=== PATIENT | female | born 1955 | race Hispanic/Latino ===

== ENCOUNTER 2018-01-17 12:37 | Emergency (ER) | payer MEDICARE, OTHER ==
[2018-01-17 13:13] LABS: #Eosinphils 0.1 thou/uL (0.0-0.7); #Monocytes 0.1 thou/uL (0.11-0.59); #Neutrophils 1.8 thou/uL (1.40-6.50); %Basophils 1.4 % (0.0-1.0); %Eosinophils 2.3 % (0.0-10.0); %Lymphocytes 33.2 % (21.0-51.0); %Monocytes 4.5 % (0.0-10.0); %Neutrophils 58.7 % (42.0-75.0); Hemoglobin 13.5 g/dL (12.0-16.0); Mean Corpuscular HGB CONC 33.5 g/dL (32.0-36.0); Mean Corpuscular Hemoglobin 28.8 pg (27.0-31.0); Mean Corpuscular Volume 86.1 fL (78.0-98.0); Mean Platelet Volume 10.3 fL (7.4-10.4); Platelet Count 127 thou/uL (130-400); Red Blood Cell (RBC) Count 4.68 mill/uL (4.20-5.40)
[2018-01-17 13:32] LABS: ALT (SGPT) 18 U/L (8-55); AST (SGOT) 19 U/L (5-34); Albumin 4.3 g/dL (3.4-4.8); Alkaline Phosphatase 88 U/L (40-150); Anion Gap 12 mmol/L (10-20); BUN (Urea Nitrogen) 14 mg/dL (9.8-20.1); Bilirubin, Total 0.4 mg/dL (0.2-1.2); Calc. Creatinine Clearance 0 mL/min (70-130); Calcium 9.9 mg/dL (7.8-10.44); Carbon Dioxide 26 mmol/L (23-31); Chloride 103 mmol/L (98-107); Estimated GFR-MDRD 69; Globulin 3.3 g/dL (2.4-3.5); Glucose 188 mg/dL (80-115); Potassium 4.4 mmol/L (3.5-5.1); Protein, Total 7.6 g/dL (6.0-8.3); Sodium 137 mmol/L (136-145)
[2018-01-17 13:37] LABS: CKMB 1.9 ng/mL (0-6.6); Troponin I Less than 0.010 ng/mL (< 0.028)
--- NOTE | 2018-01-17 13:53 | RAD ---
LEFT SHOULDER 3 VIEWS: HISTORY: A 62-year-old female with a history of left arm numbness for 2 days. FINDINGS: Mild degenerative changes left AC joint and glenohumeral joint. No fracture, dislocation, or other s ignificant acute osseous abnormality. IMPRESSION: Degenerative change without fracture or dislocation. POS: IFEOMA
--- NOTE | 2018-01-17 13:54 | RAD ---
CHEST 1 VIEW: HISTORY: Chest pain. COMPARISON: Radiograph 11/28/2015. FINDINGS: The heart size is mildly enlarged. No focal confluent airspace consolidation, pneumothorax, or effus ion. IMPRESSION: No acute intrathoracic abnormality. Mild cardiomegaly. POS: IFEOMA
== END 2018-01-17 14:27 | disposition home or self-care (01) ==
LOC: ERS 12:37
DX: S46.912A Strain of unspecified muscle, fascia and tendon at shoulder and upper arm level, left arm, initial encounter (principal); E78.5 Hyperlipidemia, unspecified; E11.9 Type 2 diabetes mellitus without complications; I10 Essential (primary) hypertension; Z79.899 Other long term (current) drug therapy; X58.XXXA Exposure to other specified factors, initial encounter
CPT/HCPCS: 71045; 80053; 82553; 84484; 85025; 93005

== ENCOUNTER 2018-07-01 10:12 | Emergency (ER) | payer MEDICARE, OTHER ==
[2018-07-01] MEDS ORDERED: Sulfameth/Trimethoprim DS 800-160mg TAB ONE (13:37)
[2018-07-01] MEDS ORDERED: Lidocaine 1% PF 5 ML VIAL ONE (13:38)
[2018-07-01] MEDS ORDERED: cefTRIAXone\\ROCEPHIN 1 GM VIAL ONE (13:38)
== END 2018-07-01 14:29 | disposition home or self-care (01) ==
LOC: ERS 10:12
DX: H05.011 Cellulitis of right orbit (principal); E78.5 Hyperlipidemia, unspecified; E11.9 Type 2 diabetes mellitus without complications; I10 Essential (primary) hypertension; Z79.899 Other long term (current) drug therapy
CPT/HCPCS: 96372; J0696; J2001

== ENCOUNTER 2018-07-02 10:36 | Emergency (ER) | payer MEDICARE, OTHER | END 2018-07-02 12:15 | disposition home or self-care (01) | LOC: ERS 10:36 | DX: L03.213 Periorbital cellulitis (principal); E11.9 Type 2 diabetes mellitus without complications; I10 Essential (primary) hypertension; E78.5 Hyperlipidemia, unspecified | CPT/HCPCS: 99282 ==

== ENCOUNTER 2018-07-28 12:02 | Emergency (ER) | payer MEDICARE, OTHER | END 2018-07-28 12:45 | disposition home or self-care (01) | LOC: ERS 12:02 | DX: S46.911A Strain of unspecified muscle, fascia and tendon at shoulder and upper arm level, right arm, initial encounter (principal); E11.65 Type 2 diabetes mellitus with hyperglycemia; Z79.84 Long term (current) use of oral hypoglycemic drugs; X50.0XXA Overexertion from strenuous movement or load, initial encounter | CPT/HCPCS: 36416; 99283 ==

== ENCOUNTER 2018-10-21 11:08 | Emergency (ER) | payer MEDICARE, MEDICAID ==
[2018-10-21 12:05] LABS: #Lymphocytes 0.9 thou/uL (1.20-3.40); #Monocytes 0.3 thou/uL (0.11-0.59); #Neutrophils 5.6 thou/uL (1.40-6.50); %Basophils 0.3 % (0.0-1.0); %Eosinophils 0.5 % (0.0-10.0); %Lymphocytes 12.7 % (21.0-51.0); %Neutrophils 81.5 % (42.0-75.0); Hemoglobin 11.8 g/dL (12.0-16.0); Mean Corpuscular HGB CONC 33.4 g/dL (32.0-36.0); Mean Corpuscular Hemoglobin 28.5 pg (27.0-31.0); Mean Corpuscular Volume 85.3 fL (78.0-98.0); Mean Platelet Volume 9.8 fL (7.4-10.4); Platelet Count 142 thou/uL (130-400); RBC Distribution Width 12.8 % (11.5-14.5); Red Blood Cell (RBC) Count 4.14 mill/uL (4.20-5.40); White Blood Cell (WBC) Count 6.8 thou/uL (4.8-10.8)
[2018-10-21] MEDS ORDERED: HYDROcodone/Acetaminophen 10/325 mg Tablet ONE (12:06)
[2018-10-21] MEDS ORDERED: Lidocaine 1% (PF) 30 ML VIAL ONE (12:06)
[2018-10-21 12:27] LABS: ALT (SGPT) 11 U/L (8-55); AST (SGOT) 12 U/L (5-34); Albumin 3.9 g/dL (3.4-4.8); Alkaline Phosphatase 87 U/L (40-150); Anion Gap 11 mmol/L (10-20); BUN (Urea Nitrogen) 14 mg/dL (9.8-20.1); Bilirubin, Total 0.8 mg/dL (0.2-1.2); Calc. Creatinine Clearance 0 mL/min (70-130); Calcium 9.5 mg/dL (7.8-10.44); Carbon Dioxide 27 mmol/L (23-31); Chloride 101 mmol/L (98-107); Estimated GFR-MDRD 59; Glucose 240 mg/dL (80-115); Potassium 4.6 mmol/L (3.5-5.1); Protein, Total 6.9 g/dL (6.0-8.3); Sodium 134 mmol/L (136-145)
[2018-10-21] MEDS ORDERED: Ondansetron ODT 4 MG TAB ONE (14:11)
== END 2018-10-21 14:15 | disposition home or self-care (01) ==
LOC: ERS 11:08
DX: L02.212 Cutaneous abscess of back [any part, except buttock and flank] (principal); E11.9 Type 2 diabetes mellitus without complications; I10 Essential (primary) hypertension; E78.5 Hyperlipidemia, unspecified; E78.00 Pure hypercholesterolemia, unspecified
CPT/HCPCS: 10060; 36415; 80053; 83605; 85025; 87040; 96360; J2001; Q0162

== ENCOUNTER 2019-08-08 00:11 | Inpatient (IN) | payer MEDICARE, MEDICAID ==
[2019-08-08 00:57] LABS: #Eosinphils 0.2 thou/uL (0.0-0.7); #Monocytes 0.2 thou/uL (0.11-0.59); #Neutrophils 2.6 thou/uL (1.40-6.50); %Eosinophils 4.5 % (0.0-10.0); %Lymphocytes 25.3 % (21.0-51.0); %Monocytes 4.6 % (0.0-10.0); %Neutrophils 64.6 % (42.0-75.0); Mean Corpuscular HGB CONC 33.4 g/dL (32.0-36.0); Mean Corpuscular Hemoglobin 29.1 pg (27.0-31.0); Mean Corpuscular Volume 87.1 fL (78.0-98.0); Mean Platelet Volume 10.5 fL (7.4-10.4); Platelet Count 132 thou/uL (130-400); RBC Distribution Width 13.3 % (11.5-14.5); Red Blood Cell (RBC) Count 4.48 mill/uL (4.20-5.40); White Blood Cell (WBC) Count 4.1 thou/uL (4.8-10.8)
[2019-08-08 01:11] LABS: ALT (SGPT) 30 U/L (8-55); AST (SGOT) 48 U/L (5-34); Alkaline Phosphatase 81 U/L (40-110); Anion Gap 15 mmol/L (10-20); BUN (Urea Nitrogen) 19 mg/dL (9.8-20.1); Bilirubin, Total 0.3 mg/dL (0.2-1.2); CK (CPK) 116 U/L (29-168); Calc. Creatinine Clearance 0 mL/min (70-130); Calcium 9.1 mg/dL (7.8-10.44); Carbon Dioxide 24 mmol/L (23-31); Chloride 104 mmol/L (98-107); Estimated GFR-MDRD 46; Glucose 261 mg/dL (80-115); Sodium 139 mmol/L (136-145)
[2019-08-08 01:34] LABS: CKMB 3.8 ng/mL (0-6.6)
[2019-08-08] MEDS ORDERED: Aspirin Chewable 81 MG TAB ONE (02:07)
[2019-08-08] MEDS ORDERED: Furosemide 40 MG/4 ML VIAL ONE (02:07)
[2019-08-08] MEDS ORDERED: HYDROcodone/Acetaminophen 5/325 mg Tablet PO PRN ×2 (04:35)
[2019-08-08] MEDS ORDERED: Acetaminophen 325 MG TAB PO PRN (04:35)
[2019-08-08] MEDS ORDERED: Acetaminophen 650 MG Suppository PR PRN (04:35)
[2019-08-08] MEDS ORDERED: Dextrose 50% Abboject 50 ML SYRINGE SLOW IVP PRN (04:47)
[2019-08-08] MEDS ORDERED: Dextrose 5% in Water 1,000 ML IV PRN (04:47)
--- NOTE | 2019-08-08 04:48 | PDOC.HHP ---
Hospitalist HPI - History of Present Illness sob chest pain History of Present Illness: Case of an 64y/o female w pmhx of DM who comes to hospital due to sob. patient refers she was on her usual state of health until today when she was awoken due to dyspnea and chest pain. patient refers she had severe sob with associated chest pain 9/10 non radiating of crushing quaility, associated with diaphoresis and palpitations. patient states sitting up improves her sob, denies any leg swelling or similar events in the past, but does refers that for a couple a months she started to have some chest pain on exertion that improves with rest. at the ED patient was dx with new onset of CHF and hospitalist was consulted for further evaluation and management. Hospitalist ROS - Review of Systems All other systems reviewed; all pertinent +/- noted in HPI/Subj Hospitalist History - Past Medical History Cardiac: reports: HTN, Hyperlipidemia Endocrine: reports: Diabetes - Past Surgical History Past Surgical History: reports: Cholecystectomy - Family History Family History: reports: cancer, cardiac disorder - Social History Smoking Status: Never smoker Alcohol: reports: None Drugs: reports: none - Exam General Appearance: NAD, awake alert Eye: PERRL, anicteric sclera ENT: normocephalic atraumatic, no oropharyngeal lesions Neck: supple, symmetric, no JVD Heart: RRR, no murmur, no gallops Respiratory: rales Gastrointestinal: soft, non-tender, non-distended Extremities: no cyanosis, no clubbing, no edema Skin: normal turgor, no lesions Neurological: cranial nerve grossly intact, normal sensation to touch, no weakness Musculoskeletal: normal tone, normal strength Psychiatric: normal affect, normal behavior, A&O x 3 Hospitalist Results - Labs Result Diagrams: 08/08/19 00:43 08/08/19 00:43 Lab results: WBC 4.1 thou/uL (4.8-10.8) L 08/08/19 00:43 Hgb 13.0 g/dL (12.0-16.0) 08/08/19 00:43 Hct 39.0 % (36.0-47.0) 08/08/19 00:43 MCV 87.1 fL (78.0-98.0) 08/08/19 00:43 Plt Count 132 thou/uL (130-400) 08/08/19 00:43 Neutrophils % 64.6 % (42.0-75.0) 08/08/19 00:43 Sodium 139 mmol/L (136-145) 08/08/19 00:43 Potassium 4.0 mmol/L (3.5-5.1) 08/08/19 00:43 Chloride 104 mmol/L (98-107) 08/08/19 00:43 Carbon Dioxide 24 mmol/L (23-31) 08/08/19 00:43 BUN 19 mg/dL (9.8-20.1) 08/08/19 00:43 Creatinine 1.18 mg/dL (0.6-1.1) H 08/08/19 00:43 Glucose 261 mg/dL (80-115) H 08/08/19 00:43 Calcium 9.1 mg/dL (7.8-10.44) 08/08/19 00:43 Total Bilirubin 0.3 mg/dL (0.2-1.2) 08/08/19 00:43 AST 48 U/L (5-34) H 08/08/19 00:43 ALT 30 U/L (8-55) 08/08/19 00:43 Alkaline Phosphatase 81 U/L (40-110) 08/08/19 00:43 Creatine Kinase 116 U/L (29-168) 08/08/19 00:43 CK-MB (CK-2) 3.8 ng/mL (0-6.6) 08/08/19 00:43 Troponin I 0.046 ng/mL (< 0.028) H 08/08/19 00:43 B-Natriuretic Peptide 718.6 pg/mL (0-100) H 08/08/19 00:43 Serum Total Protein 7.0 g/dL (6.0-8.3) 08/08/19 00:43 Albumin 4.0 g/dL (3.4-4.8) 08/08/19 00:43 - Radiology Interpretation Chest x-ray Additional Comment: cardiomegaly, pulmonary edema Hospitalist H&P A/P - Problem (1) Decompensated heart failure Code(s): I50.9 - HEART FAILURE, UNSPECIFIED Status: Acute (2) HTN (hypertension) Code(s): I10 - ESSENTIAL (PRIMARY) HYPERTENSION Status: Acute (3) DM (diabetes mellitus) Code(s): E11.9 - TYPE 2 DIABETES MELLITUS WITHOUT COMPLICATIONS Status: Acute (4) Hypercholesteremia Code(s): E78.00 - PURE HYPERCHOLESTEROLEMIA, UNSPECIFIED Status: Acute - Plan Plan: - diuresis w lasix 20iv q 12 - lasix naive - starting medical management for chf w bb and acei - 02 supplementation - 2d echo -cardiology consulted - serial troponins -ss and sliding scale
[2019-08-08 06:00] LABS: Troponin I 1.121 ng/mL (< 0.028)
[2019-08-08] MEDS: Furosemide 20 MG/2 ML VIAL SLOW IVP SCH ×2 (06:06→13:04)
--- NOTE | 2019-08-08 07:12 | CT ---
PRELIMINARY REPORT/[facility]/EMERGENCY AFTER HOURS PROCEDURE: EXAM: CTA Chest with Intravenous Contrast CLINICAL HISTORY: ER 3...Patient presents with central chest pain and shortness of breath that awoke her from sleep yon roximately 1 hour ago. She says the pain and shortness of breath are worsened when she lays flat. She denies no previous similar symptoms in the past. She has had a dry cough but no fever. She denies na usea, vomiting, dizziness, and back pain COMPARISON: CT\SR - CTA ANGIO CHEST W WO CON - 11/26/2012 06:22 AM CDT FINDINGS: PULMONARY ARTERIES No filling defects are seen in the pulmonary arteries to suggest acute pulmonary embolus. AORTA No thoracic aortic aneurysm or dissection. Mild atherosclerotic calcifications. LUNGS Extensive perihilar patchy and hazy groundglass opacities bilaterally. Mild passive atelectasis in th e dependent lung parenchyma. Mild peribronchial thickening. Tiny calcified right lower lobe granuloma . PLEURAL SPACES Small to moderate sized pleural effusions. No pneumothorax. HEART AND MEDIASTINUM Cardiomegaly. Moderate sized pericardial effusion. LYMPH NODES Scattered nonspecific top normal size mediastinal and hilar lymph nodes. BONES Thoracic spondylosis. CHEST WALL AND UPPER ABDOMEN Small hiatal hernia. IMPRESSION: 1. No evidence of pulmonary embolus. 2. Moderate cardiogenic edema with pleural and pericardial effusions in the proper clinical setting. ELECTRONICALLY SIGNED BY: Naseem Wilson MD Aug 08, 2019 2:43:09 AM CDT This report is intended for review by the ordering physician only, in accordance of law. If you recei ve this report in error, please call [facility] at [phone]. FINAL REPORT EMERGENCY AFTER HOURS CTA CHEST WITH CONTRAST: TECHNIQUE: Multiple contiguous axial images were obtained in a CTA of the chest per pulmonary embolism protocol. 3D oblique MIP reformats and direct coronal reformats were performed. FINDINGS/IMPRESSION: I agree with the findings and impression given in the preliminary report per [facility] physici an. 1. No evidence of pulmonary thromboembolism. 2. Bilateral pleural effusions with multifocal air space opacities in the lungs. This most likely re presents pulmonary edema. 3. Pericardial effusion. POS: KATHARINEA
--- NOTE | 2019-08-08 07:55 | RAD ---
EXAM: Portable chest PROVIDED CLINICAL HISTORY: Chest pain COMPARISON: 01/17/2018 FINDINGS: Cardiac silhouette appears enlarged. Atherosclerosis involves the aortic arch.Prominence of the pulmo nary vasculature and pulmonary interstitium. Bilateral perihilar airspace disease, left greater than right. Blunting of left costophrenic angle. No evidence for pneumothorax. IMPRESSION: Cardiomegaly and findings suggesting congestive failure. Airspace disease may reflect pulmonary edema and/or pneumonia. Follow-up is recommended.
[2019-08-08 09:00] LABS: Troponin I 2.801 ng/mL (< 0.028)
[2019-08-08] MEDS ORDERED: Carvedilol 3.125 MG TAB PO SCH (09:00)
[2019-08-08] MEDS ORDERED: Amlodipine 5 MG TAB PO SCH (09:00)
[2019-08-08] MEDS: Aspirin 81 mg Enteric Coated Tablet PO SCH (10:05)
[2019-08-08] MEDS: Lisinopril 2.5 MG TAB PO SCH (10:06)
[2019-08-08] MEDS: Enoxaparin Sodium 40 MG/0.4 ML SYRINGE SC SCH ×2 (10:12→11:08)
[2019-08-08] MEDS: HumaLOG 300 UNITS/3 ML VIAL SC PRN (12:06)
--- NOTE | 2019-08-08 12:26 | PDOC.EVN ---
Event Note - Event Note Event Note: Patient seen and examined. Still has chest pain and shortness of breath when gets up to bathroom, but none at rest now. Feeling a bit better. Troponin bumped above 2. Dr. Goodman consulted, may need cath.
[2019-08-08] MEDS ORDERED: Iopamidol-370 76% 500 ML 1 ML ONE (12:42)
[2019-08-08] MEDS ORDERED: Communication Order-Pharmacy FS SCH (14:30)
[2019-08-08] MEDS ORDERED: Furosemide 20 MG/2 ML VIAL SLOW IVP SCH (14:30)
[2019-08-08] MEDS: Glimepiride 4 MG TAB PO SCH (16:18)
[2019-08-08] MEDS: Carvedilol 6.25 MG TAB PO SCH (16:18)
--- NOTE | 2019-08-08 20:45 | CON ---
DATE OF CONSULTATION: HISTORY: Magdalena Moncada is a 64-year-old female, admitted with shortness of breath. After her evaluation, as per Mrs. Moncada' wishes, I called her sister, Evelyn Pal at [phone] to discuss Mrs. Moncada' condition. Over the last two weeks, Ms. Moncada has noted exertional chest pressure that would last approximately 5 minutes. She will be short of breath with this, but denied any diaphoresis, nausea, or vomiting. 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 She also had same central chest pressure. Blood pressure was as high as 189/115. She was given a DuoNeb, transderm nitroglycerin 1 inch was placed, aspirin 325 was given , and then she was given Lasix 40 mg IV. She states that her breathing has improved, but she still has problems lying supine. She does not have any further chest discomfort. PAST MEDICAL HISTORY: Hypertension, diabetes, and hypercholesterolemia. She states she was on cholesterol medicines in the past, but stopped them because she thought it caused diarrhea. CURRENT MEDICATIONS: Amlodipine 5 mg daily, glimepiride 4 mg b.i.d. ALLERGIES: NONE. OPERATIONS: Cholecystectomy. SOCIAL HISTORY: She does not smoke or drink. FAMILY HISTORY: Negative for coronary artery disease. REVIEW OF SYSTEMS: 10-point review of systems is otherwise unremarkable. PHYSICAL EXAMINATION: VITAL SIGNS: 129/70, pulse of 110, sinus rhythm on the monitor. HEENT: PERRL. NECK: Supple. CHEST: Reveals rales one-half way up the posterior lung turner. CARDIOVASCULAR: S1, S2 normal without any S3 or S4. There is a 1/6 holosystolic murmur at the apex. Carotid upstrokes normal without bruits. ABDOMEN: Normal bowel sounds without tenderness or organomegaly. EXTREMITIES: Revealed no clubbing, cyanosis, or edema. NEUROLOGIC: Grossly intact. SKIN: Warm and dry. LABORATORY DATA: EKG revealed sinus tachycardia with nonspecific T-wave changes possible left atrial enlargement. There is only one EKG and another will be requested. Chest x-ray revealed pulmonary edema. She underwent chest CTA which revealed no evidence of pulmonary embolism. There are bilateral pleural effusions and changes consistent with pulmonary edema. There also was a pericardial effusion. Echocardiogram revealed a small pericardial effusion, severe left ventricular dysfunction with ejection fraction of 20% to 25%, left atrial enlargement, mitral regurgitation and mild tricuspid regurgitation. Hemoglobin 13.0, hematocrit 39.0, white count 4100, platelets 132,000. D-dimer 1.62. Sodium 139, potassium 4.0, chloride 104, carbon dioxide 24, BUN 19, creatinine 1.18, glucose up to 304. Troponin I is up to 2.801. BNP 718.6. It is of note that in August 2018, LDL was 144 and has been as high as 171, triglycerides also has been as high as 409. IMPRESSION: 1. Adl-PO-dwquqyyri myocardial infarction, type 1. 2. Fmdil-kw-fzjinhj systolic heart failure. She probably has an ischemic cardiomyopathy. 3. Hypercholesterolemia, untreated. 4. Hypertension. 5. Diabetes. PLAN: The patient's furosemide will be increased to 40 mg b.i.d. with significant rales on examination at the present time. Also, her amlodipine will be discontinued and the carvedilol will be increased with her tachycardia and left ventricular dysfunction. Fasting lipid profile will be obtained. Another EKG will be performed. She is to undergo cardiac catheterization with her severe left ventricular dysfunction and an increase in her troponin. Risks of catheterization were discussed with the patient including , myocardial infarction, stroke, transfusion, limb loss, renal loss, dye reaction, vascular repair, etc. Risks of stent placement were discussed including , myocardial infarction, emergent CABG, restenosis, stent thrombosis, vessel perforation, etc. She will be reassessed in the morning to see if her rales have cleared and possible catheterization on August 08. If she still has significant rales then we will need to wait another day or two. She has never had any gastrointestinal bleeding or stroke and does not have any upcoming surgeries and therefore a drug-eluting stent will be placed if needed. Job ID: [id number] MTDD
[2019-08-09 04:34] LABS: Anion Gap 12 mmol/L (10-20); BUN (Urea Nitrogen) 28 mg/dL (9.8-20.1); Calc. Creatinine Clearance 51 mL/min (70-130); Calcium 8.9 mg/dL (7.8-10.44); Carbon Dioxide 26 mmol/L (23-31); Cardiac Risk 3.9 (Less than 4.5); Chloride 103 mmol/L (98-107); Cholesterol 188 mg/dl (< 200 Desired); Estimated GFR-MDRD 54; Glucose 141 mg/dL (80-115); HDL Cholesterol 48 mg/dL (>60 Neg Risk); LDL Cholesterol, Calculated 114 mg/dL; Magnesium 2.1 mg/dL (1.6-2.6); Potassium 3.9 mmol/L (3.5-5.1); Sodium 137 mmol/L (136-145); Triglycerides 131 mg/dL (Less than 150)
[2019-08-09] MEDS: Furosemide 40 MG/4 ML VIAL SLOW IVP SCH ×2 (05:31→16:13)
[2019-08-09] MEDS: Carvedilol 6.25 MG TAB PO SCH ×2 (05:31→16:12)
[2019-08-09] MEDS: Lisinopril 2.5 MG TAB PO SCH (05:31)
[2019-08-09] MEDS: Aspirin 81 mg Enteric Coated Tablet PO SCH (05:32)
[2019-08-09] MEDS ORDERED: Sodium Chloride 0.9% 1,000 ML IV SCH (06:00)
--- NOTE | 2019-08-09 07:03 | EKG ---
Test Reason : Blood Pressure : / mmHG Vent. Rate : 096 BPM Atrial Rate : 096 BPM P-R Int : 126 ms QRS Dur : 076 ms QT Int : 384 ms P-R-T Axes : 047 006 184 degrees QTc Int : 485 ms Normal sinus rhythm new changes are noted, possible acute OH Prolonged QT Abnormal ECG When compared with ECG of 08-AUG-2019 00:31, (Unconfirmed) T wave inversion now evident in Anterior leads Confirmed by DR. Haris REDDY (3) on 08/09/2019 7:03:19 AM Referred By: EDEL Confirmed By:DR. Haris REDDY
[2019-08-09] MEDS ORDERED: Communication Order-Pharmacy FS SCH (07:15)
[2019-08-09] MEDS: Glimepiride 4 MG TAB PO SCH ×2 (09:49→16:13)
[2019-08-09] MEDS ORDERED: Potassium Chloride 10 MEQ TAB PO SCH (10:45)
[2019-08-09] MEDS: HumaLOG 300 UNITS/3 ML VIAL SC PRN (12:30)
--- NOTE | 2019-08-09 18:46 | PDOC.HOSPP ---
- Subjective Encounter Date: 08/09/19 Encounter Time: 08:20 Subjective: Pt seen for followup re: CHF exacerbation. Feels better, but unable to lie flat. - Objective Vital Signs & Weight: Vital Signs (12 hours) Temp Pulse Resp BP BP Pulse Ox 08/09/19 16:06 99.6 F 84 25 H 128/67 97 08/09/19 15:15 99.1 F 85 16 127/65 93 L 08/09/19 11:16 98.1 F 74 17 119/56 L 98 08/09/19 10:50 98.3 F 77 19 118/58 L 97 08/09/19 08:04 98 F 70 14 110/55 L 95 08/09/19 06:44 95 Weight Weight 132 lb I&O: 08/08/19 08/09/19 08/10/19 06:59 06:59 06:59 Intake Total 1440 480 Output Total 820 Balance 620 480 Result Diagrams: 08/08/19 00:43 08/09/19 03:48 Additional Labs: Accuchecks 08/09/19 08/09/19 08/09/19 17:40 10:51 05:54 POC Glucose 99 320 H 143 H 08/08/19 20:35 POC Glucose 189 H Labs and MARs reviewed by me EKG Reviewed by me: Yes (Tele: NSR) Hospitalist ROS - Review of Systems Respiratory: reports: SOB with excertion. denies: cough, shortness of breath, pleuritic pain, wheezing Cardiovascular: denies: chest pain, palpitations, orthopnea, paroxysmal noc. dyspnea, edema, light headedness - Medication Medications: Active Medications Generic Name Dose Route Start Last Admin Trade Name Freq PRN Reason Stop Dose Admin Aspirin 81 mg 08/08/19 09:00 08/09/19 05:32 Ecotrin PO 81 mg DAILY ADRIANA Administration Carvedilol 6.25 mg 08/08/19 17:00 08/09/19 16:12 Coreg PO 6.25 mg BID-WM ADRIANA Administration Furosemide 40 mg 08/09/19 06:00 08/09/19 16:13 Lasix SLOW IVP 40 mg 0600,1400 ADRIANA Administration Glimepiride 4 mg 08/08/19 16:30 08/09/19 16:13 Amaryl PO 4 mg BID-AC ADRIANA Administration Insulin Human Lispro 0 units 08/08/19 04:47 08/09/19 12:30 Humalog SC 5 unit .MILD SLIDING SCALE PRN Administration Mild Correctional Scale Lisinopril 2.5 mg 08/08/19 09:00 08/09/19 05:31 Zestril PO 2.5 mg DAILY ADRIANA Administration Sodium Chloride 10 ml 08/09/19 09:00 08/09/19 09:49 Flush - Normal Saline IVF 10 ml Q12HR ADRIANA Administration - Exam General - other findings: Obese Eye: anicteric sclera ENT: moist mucosa Neck: supple Heart: RRR Respiratory: no wheezes, normal chest expansion, rales Gastrointestinal: soft, non-tender, normal bowel sounds Psychiatric: normal affect, normal behavior Hosp A/P - Plan - Assessment (1) Acute on chronic systolic heart failure NYHA class 3 Status: Acute (2) HTN (hypertension) Code(s): I10 - ESSENTIAL (PRIMARY) HYPERTENSION Status: Chronic (3) DM (diabetes mellitus) Code(s): E11.9 - TYPE 2 DIABETES MELLITUS WITHOUT COMPLICATIONS Status: Chronic (4) Hypercholesteremia Code(s): E78.00 - PURE HYPERCHOLESTEROLEMIA, UNSPECIFIED Status: Chronic - Plan - diuresis w IV lasix - Pt awaiting cath - 02 supplementation PRN -accuchecks and insulin sliding scale
[2019-08-09] MEDS ORDERED: Atorvastatin Calcium 40 MG TAB PO SCH (21:00)
[2019-08-10 04:49] LABS: Anion Gap 13 mmol/L (10-20); BUN (Urea Nitrogen) 30 mg/dL (9.8-20.1); Calc. Creatinine Clearance 53 mL/min (70-130); Calcium 8.8 mg/dL (7.8-10.44); Carbon Dioxide 26 mmol/L (23-31); Chloride 102 mmol/L (98-107); Estimated GFR-MDRD 57; Glucose 83 mg/dL (80-115); Potassium 3.7 mmol/L (3.5-5.1); Sodium 137 mmol/L (136-145)
[2019-08-10] MEDS: Lisinopril 2.5 MG TAB PO SCH (05:29)
[2019-08-10] MEDS: Carvedilol 6.25 MG TAB PO SCH ×2 (05:30→16:22)
[2019-08-10] MEDS: Furosemide 40 MG/4 ML VIAL SLOW IVP SCH (05:30)
[2019-08-10] MEDS: Aspirin 81 mg Enteric Coated Tablet PO SCH (05:30)
[2019-08-10] MEDS ORDERED: Sodium Chloride 0.9% 1,000 ML IV SCH (06:00)
[2019-08-10] MEDS ORDERED: Furosemide 40 MG TAB PO SCH (07:30)
--- NOTE | 2019-08-10 07:52 | RAD ---
EXAM: Single view of the chest HISTORY: Pulmonary edema COMPARISON: 08/08/2019 FINDINGS: Single view of the chest shows an enlarged but stable cardiomediastinal silhouette. There i s significant improvement in the bilateral perihilar opacities seen on the prior exam. The bones are unremarkable. IMPRESSION: Significant improvement in pulmonary edema.
[2019-08-10] MEDS ORDERED: Potassium Chloride 10 MEQ TAB PO SCH (08:00)
[2019-08-10] MEDS ORDERED: Heparin 10,000 UNITS/1 ML VIAL ONE (08:23)
[2019-08-10] MEDS ORDERED: Midazolam HCl 2 mg/2 ml Vial ONE ×2 (08:48→10:07)
[2019-08-10] MEDS ORDERED: Fentanyl 100 MCG/2 ML VIAL ONE ×2 (08:48→10:07)
[2019-08-10] MEDS ORDERED: Heparin 25,000 units/D5W 500 ML ONE (09:26)
[2019-08-10] MEDS: Glimepiride 4 MG TAB PO SCH ×2 (09:31→16:21)
[2019-08-10] MEDS ORDERED: Communication Order-Pharmacy FS ONE (09:56)
[2019-08-10] MEDS ORDERED: Vecuronium 10 MG VIAL ONE ×2 (10:07→11:41)
[2019-08-10] MEDS ORDERED: Midazolam HCl 5 mg/5 ml Vial ONE (10:07)
[2019-08-10] MEDS ORDERED: Dexmedetomidine 200 MCG/2 ML VIAL ONE (10:07)
[2019-08-10] MEDS ORDERED: Albumin 5% 500 ML ONE (11:37)
[2019-08-10] MEDS ORDERED: Papaverine 60 MG/2 ML VIAL ONE (11:41)
[2019-08-10] MEDS ORDERED: Protamine Sulfate 250 MG/25 ML VIAL ONE (11:41)
[2019-08-10] MEDS ORDERED: PHENYLEPHRINE-NS 100 MCG/ML 10 ML SYRINGE ONE ×2 (11:41→14:38)
[2019-08-10] MEDS ORDERED: Nitroglycerin 50 MG/250 ML BOT ONE (11:41)
[2019-08-10] MEDS ORDERED: Lidocaine 2% PF 5 ML VIAL ONE (11:41)
[2019-08-10] MEDS ORDERED: Cardioplegic Soln 1,000 ML BAG ONE (11:41)
[2019-08-10] MEDS ORDERED: Sodium Bicarb 50 MEQ/50 ML Abboject 8.4% SYRINGE ONE (11:41)
[2019-08-10] MEDS ORDERED: Aminocaproic Acid 5 GM/20 ML VIAL ONE (11:41)
[2019-08-10] MEDS ORDERED: Potassium Chloride 60 MEQ/30 ML VIAL ONE (11:41)
[2019-08-10] MEDS ORDERED: PROPOFOL 200 MG/20 ML VIAL ONE (11:41)
[2019-08-10] MEDS ORDERED: Magnesium Sulfate 1 GM/2 ML VIAL ONE (11:41)
[2019-08-10] MEDS ORDERED: Heparin 30,000 units/30 ml VIAL ONE (11:41)
[2019-08-10] MEDS ORDERED: Norepinephrine 4 MG/4 ML VIAL ONE (11:41)
[2019-08-10] MEDS ORDERED: Calcium Chloride 1 GM/10 ML Abboject SYRINGE ONE (11:41)
[2019-08-10] MEDS ORDERED: Thrombin 5000 UNITS/5 ML VIAL ONE (11:41)
[2019-08-10] MEDS ORDERED: Heparin 5,000 UNITS/ML VIAL ONE (11:41)
[2019-08-10] MEDS ORDERED: Heparin 10,000 UNITS/1 ML VIAL 30,000 UNITS in Sodium Chloride 0.9% 1,000 ML FS SCH (11:45)
[2019-08-10] MEDS ORDERED: Sodium Chloride 0.9% 20 ML ONE (12:53)
[2019-08-10] MEDS ORDERED: Fentanyl 250 MCG/5 ML VIAL ONE (14:08)
[2019-08-10] MEDS ORDERED: EPINEPHrine 1 MG/ML AMP ONE (14:58)
[2019-08-10] MEDS ORDERED: Bupivacaine PF 0.5% 30 ML VIAL ONE (14:58)
[2019-08-10] MEDS ORDERED: Dexamethasone 4 mg/ml Vial ONE (14:58)
[2019-08-10] MEDS ORDERED: Insulin Regular 300 UNITS/3 ML VIAL ONE (15:01)
[2019-08-10] MEDS ORDERED: Milrinone 10 MG/10 ML VIAL ONE (15:09)
[2019-08-10 16:57] LABS: Actual Bicarbonate (HCO3a) 21.5 mEq/L (22-28); CO2 Tension 36.1 mmHg (35.0-45.0); Calcium, Ionized (arterial) 1.09 mmol/L (1.12-1.30); Carboxyhemoglobin (COHb) 0.7 gm% (0.0-3.0); Hemoglobin (Hb) 11.5 g/dL (12.0-16.0); O2 Tension (PaO2), arterial 120.3 mmHg (> 80.0); Potassium - ABG Lab 3.95 mmol/L (3.70-5.30); pH, Arterial 7.39 (7.35-7.45)
[2019-08-10 16:58] LABS: Puncture Site ALINE
[2019-08-10 17:01] LABS: ALV-art Gradient 262.375 (0-20)
[2019-08-10] MEDS ORDERED: Promethazine HCl 25 MG/ML VIAL IM PRN (17:48)
[2019-08-10] MEDS ORDERED: Bisacodyl 5 MG TAB PO PRN (17:48)
[2019-08-10] MEDS ORDERED: Mag-Al 1200 mg/1200 mg/30 ML UDCUP PO PRN (17:48)
[2019-08-10] MEDS ORDERED: Post-Op Insulin Drip Protocol IVPB ONE (17:48)
[2019-08-10] MEDS ORDERED: Fentanyl 100 MCG/2 ML VIAL SLOW IVP PRN ×2 (17:48)
[2019-08-10] MEDS ORDERED: traMADol HCl 50 MG TAB PO PRN (17:48)
[2019-08-10] MEDS ORDERED: Ondansetron PF 4 MG/2 ML Vial IVP PRN (17:48)
[2019-08-10] MEDS ORDERED: Guaifenesin DM 100-10/5 ML UDCUP PO PRN (17:48)
[2019-08-10] MEDS ORDERED: Acetaminophen 325 MG TAB PO PRN (17:48)
[2019-08-10] MEDS ORDERED: Hetastarch 6% 500 ML 500 ML IVPB PRN (17:48)
[2019-08-10] MEDS ORDERED: hydrALAZINE 20 MG/ML VIAL SLOW IVP PRN (17:48)
[2019-08-10] MEDS ORDERED: Norepinephrine 8 MG/0.9% NS 250 ML IVPB PRN (17:48)
[2019-08-10] MEDS ORDERED: Nitroglycerin 50 MG/250 ML BOT 250 ML IVPB PRN (17:48)
[2019-08-10] MEDS ORDERED: Bisacodyl 10 MG SUPP PR PRN (17:48)
[2019-08-10] MEDS ORDERED: Potassium Chloride 20 MEQ/100 ML PREMIX BAG IVPB PRN (17:48)
[2019-08-10] MEDS ORDERED: Morphine 2 MG/ML SYRINGE SLOW IVP PRN (17:48)
[2019-08-10 18:02] LABS: #Eosinphils 0.2 thou/uL (0.0-0.7); #Lymphocytes 1.3 thou/uL (1.20-3.40); #Monocytes 0.3 thou/uL (0.11-0.59); #Neutrophils 5.5 thou/uL (1.40-6.50); %Basophils 0.2 % (0.0-1.0); %Eosinophils 2.3 % (0.0-10.0); %Lymphocytes 18.2 % (21.0-51.0); %Monocytes 3.8 % (0.0-10.0); %Neutrophils 75.5 % (42.0-75.0); Hemoglobin 11.3 g/dL (12.0-16.0); Mean Corpuscular HGB CONC 33.5 g/dL (32.0-36.0); Mean Corpuscular Volume 86.5 fL (78.0-98.0); Mean Platelet Volume 11.4 fL (7.4-10.4); Platelet Count 125 thou/uL (130-400); RBC Distribution Width 13.1 % (11.5-14.5); White Blood Cell (WBC) Count 7.3 thou/uL (4.8-10.8)
[2019-08-10 18:07] LABS: INR-International Normal Ratio 1.4; PTT 30.2 sec (22.9-36.1); Prothrombin Time 16.8 sec (12.0-14.7)
--- NOTE | 2019-08-10 18:08 | RAD ---
CHEST ONE VIEW: 08/10/19 INDICATION: History of open heart surgery. COMPARISON: Prior exam dated 08/10/19. FINDINGS: The patient has undergone interval sternotomy. The patient is intubated. There is a gastric catheter in place. There is a midline mediastinal drain. There is a right IJ central venous catheter. There is pulmonary vascular congestion and perihilar edema. There is a small left pleural effusion. No pneumo thorax is evident. Cholecystectomy clips are seen within the right upper quadrant. IMPRESSION: 1. Postoperative chest as above. 2. Cardiomegaly with pulmonary vascular congestion, and perihilar edema consistent with volume o verload or CHF. There is a small left pleural effusion. 3. Continued follow-up is recommended. POS: SAGAR
[2019-08-10] MEDS: Ketorolac Tromethamine 30 MG/ML VIAL IVP SCH (18:18)
[2019-08-10] MEDS: Sodium Chloride 0.9% 1,000 ML IV SCH (18:20)
[2019-08-10 18:21] LABS: Anion Gap 13 mmol/L (10-20); BUN (Urea Nitrogen) 26 mg/dL (9.8-20.1); Calc. Creatinine Clearance 60 mL/min (70-130); Calcium 7.7 mg/dL (7.8-10.44); Carbon Dioxide 21 mmol/L (23-31); Chloride 109 mmol/L (98-107); Estimated GFR-MDRD 65; Glucose 116 mg/dL (80-115); Sodium 139 mmol/L (136-145)
[2019-08-10] MEDS ORDERED: Dextrose 5% in Water 1,000 ML IV PRN (18:21)
[2019-08-10] MEDS ORDERED: Dextrose 50% Abboject 50 ML SYRINGE SLOW IVP PRN (18:21)
[2019-08-10] MEDS ORDERED: HUMULIN R 100 UNITS in Sodium Chloride 0.9% 100 ML IVPB SCH (18:45)
--- NOTE | 2019-08-10 19:49 | PDOC.EVN ---
Event Note - Event Note Event Note: Pt went for cath, followed by CABG. Could not see patient because she was out of the room most of the day for the above reasons.
[2019-08-10] MEDS ORDERED: Famotidine/PF 20 mg/2ml Vial SLOW IVP SCH (21:00)
[2019-08-10] MEDS: CEFAZOLIN 2 GM in Premix Bag 1 BAG IVPB SCH (21:29)
--- NOTE | 2019-08-10 22:40 | PQF ---
DATE: 08-10-19 ATTN: DR. HOLLY COUGHLIN Please exercise your independent, professional judgment in responding to the clarification form. Clinical indicators are provided on the bottom of this form for your review Please check appropriate box(s): [ ] ACUTE RENAL FAILURE/ MINERVA [ x ] Insignificant Lab Values [ ] Other diagnosis [ ] Unable to determine In addition, please specify: Present on Admission (POA): [ ] Yes [ ] No [ ] Unable to determine For continuity of documentation, please document condition throughout progress notes and discharge summary. Thank You. CLINICAL INDICATORS - SIGNS / SYMPTOMS/ LABS are present in the medical record: GFR: 08-08-19: 46 08-09-19: 54 08-10-19: 57 08-10-19: 65 CREATININE: 08-08-19: 1.18 08-09-19: 1.02 08-10-19: 0.98 08-10-19: 0.87 BUN: 08-08-19: 19 08-09-19: 28 08-10-19: 30 08-10-19: 26 RISK FACTORS: H&P 08-08-19: IV LASIX , DECOMPENSATED HEART FAILURE, HTN, DM 2 PROCEDURE: 08-08-19: LHC TREATMENT: MAR: 08-10-19: NS IVF SERIES OF LABS 08-08-19 TO 08-10-19 (This form is maintained as a part of the permanent medical record) 2014 [employer]. All Rights Reserved [email or web address]
--- NOTE | 2019-08-10 23:09 | OP ---
DATE OF PROCEDURE: 08/10/2019 PREOPERATIVE DIAGNOSES: Coronary artery disease/acute onset pulmonary edema/congestive heart failure/diabetes mellitus/hypertension/hypercholesterolemia. POSTOPERATIVE DIAGNOSES: Coronary artery disease/acute onset pulmonary edema/congestive heart failure/diabetes mellitus/hypertension/hypercholesterolemia. PROCEDURES PERFORMED: Urgent coronary artery bypass grafting x3 - 1. Left internal mammary artery to 1.0 mm mid left anterior descending - good conduit and small diffusely diseased target. 2. Reverse saphenous vein to 1.25 mm diagonal - good conduit and diffusely diseased small target. 3. Reverse saphenous vein to 1.0 mm obtuse marginal - good conduit with diffusely diseased small target. These were not redo targets. CIGARETTE INSPECTOR SURGEON: Nii Ellis MD ANESTHESIA: General endotracheal. ANESTHESIOLOGISTS: 1. Nadine Garcia MD. 2. Franklin Giron MD. 3. Benjamin Powell MD. PUMP TIME: 50 minutes. CROSSCLAMP TIME: 29 minutes. LOW-CORE TEMPERATURE: 34 degrees Celsius. METAL FURNITURE GLAZIER: Delia Meredith. DRAINS: 24-[place] chest tubes x2. DRIPS: Levophed at 5 mcg and insulin. The patient was loaded with Primacor on pump. TRANSFUSIONS: None. DESCRIPTION OF PROCEDURE: After consent was obtained, the patient was brought to the operating room and placed in supine position on the operating table. Appropriate central line was placed and general endotracheal anesthesia was induced. Chest, abdomen, and legs were prepped and draped in usual sterile fashion. Greater saphenous vein was harvested from the left lower extremity utilizing an endoscopic technique. Wounds were irrigated and closed in layers. Median sternotomy was performed. Left internal mammary artery was harvested as a pedicle graft. The patient was systemically heparinized. Distal pedicle was divided and infused with papaverine. Thymic fat and pericardium were divided with electrocautery. Pericardial stay sutures were placed. Aortic and atrial cannulation was performed. After adequate heparinization, the retrograde prime was performed and the patient was placed on cardiopulmonary bypass. Distal targets were marked. Aortic crossclamp was applied, and antegrade sanguineous cardioplegic arrest was obtained. 1 L of antegrade cold [place] cardioplegia was given. Topical cold solution was used. Reverse saphenous vein was anastomosed to the OM in end-to-side fashion with running 7-0 Prolene suture. Anastomosis was tested and was hemostatic. Prior to completion of anastomosis, a 1 mm probe passed distally. Reverse saphenous vein was anastomosed to the diagonal in end-to-side fashion with running 7-0 Prolene suture. Prior to completion of anastomosis, 1 mm probe passed distally. Anastomosis was tested and was hemostatic. Mammary artery was brought through a window in the pericardium and anastomosed to mid LAD in end-to-side fashion with running 7-0 Prolene suture. Prior to completion of anastomosis, a 1 mm probe passed both proximally and distally. Anastomosis was tested on release of the clamps. It was hemostatic. There was good hooding of the anastomosis. There was good distal flow. The cross-clamp was removed and partial occluding clamp placed. Saphenous veins were anastomosed to individual punch sites in the anterior aorta with running 6-0 Prolene suture. Partial occluding clamp was removed and graft was deaired. Single stitch was placed in the toe of the OM graft for hemostasis. The patient was then warmed and weaned from cardiopulmonary bypass. After resumption of sinus rhythm, good hemodynamics, temperature greater than 36.5, bypass was discontinued. Transfusions were given. Protamine was administered. Decannulation was performed and pursestring suture secured. 24-[place] chest tubes x2 were placed in mediastinum. Sternum was treated with vancomycin paste. After adequate hemostasis had been obtained, sternum was closed with #5 wire. Sternum was treated with platelet-rich plasma, wires twisted and buried. Wounds were irrigated and treated with platelet-poor plasma and closed in multiple layers. Peristernal block was performed with 0.5% Marcaine mixed with Decadron. The patient was transferred to the intensive care unit in stable, but critical condition. Needle, sponge, and instrument counts were all reported as correct at the end of the procedure. Job ID: [id number]
--- NOTE | 2019-08-10 23:15 | CON ---
DATE OF CONSULTATION: 08/10/2019 REASON FOR CONSULTATION: Evaluate the patient for emergent coronary artery bypass grafting. HISTORY OF PRESENT ILLNESS: Ms. Moncada has been in the hospital for 3 or 4 days with pulmonary edema and congestive heart failure symptoms at home. She has been diuresed. She was brought for cardiac catheterization today, which has shown a critical left main stenosis. She has small diffusely diseased vessels distal to her left main. Potential bypassable targets included LAD, diagonal and OM. Ejection fraction on echocardiogram is 20% to 25% with no valvular disease. She is being taken to the operating room acutely. PAST MEDICAL HISTORY: 1. Coronary artery disease. 2. Congestive heart failure. 3. Pulmonary edema. 4. Hypertension. 5. Dyslipidemia. 6. Uncontrolled diabetes mellitus. PAST SURGICAL HISTORY: None. CURRENT MEDICATIONS: Noted. ALLERGIES: NONE. PHYSICAL EXAMINATION: GENERAL: This is a diminutive elderly woman without current complaint. VITAL SIGNS: Heart rate is 60 and regular. Blood pressure is 170/60. LUNGS: Have crackles bilaterally. HEART: Rhythm is regular without murmur. ABDOMEN: Soft and nontender. EXTREMITIES: There is minimal edema bilaterally. ASSESSMENT AND PLAN: For emergency coronary artery bypass grafting. The plan has been discussed with the patient and her sister and we are transporting her to the operating room acutely. Job ID: [id number]
[2019-08-10 23:46] LABS: Hemoglobin 10.6 g/dL (12.0-16.0)
[2019-08-11 00:05] LABS: Potassium 4.1 mmol/L (3.5-5.1)
[2019-08-11 00:20] LABS: Actual Bicarbonate (HCO3a) 19.3 mEq/L (22-28); Base Excess (BEa) -6.4 mEq/L (-2.0 to +3.0); CO2 Tension 39.2 mmHg (35.0-45.0); Calcium, Ionized (arterial) 1.11 mmol/L (1.12-1.30); Carboxyhemoglobin (COHb) 0.6 gm% (0.0-3.0); Hemoglobin (Hb) 10.8 g/dL (12.0-16.0); O2 Tension (PaO2), arterial 97.4 mmHg (> 80.0); Potassium - ABG Lab 3.66 mmol/L (3.70-5.30); pH, Arterial 7.31 (7.35-7.45)
[2019-08-11 00:22] LABS: Puncture Site ALINE
[2019-08-11] MEDS: Ketorolac Tromethamine 30 MG/ML VIAL IVP SCH ×5 (01:38→23:48)
[2019-08-11 04:23] LABS: #Lymphocytes 0.4 thou/uL (1.20-3.40); #Monocytes 0.2 thou/uL (0.11-0.59); #Neutrophils 5.5 thou/uL (1.40-6.50); %Basophils 0.3 % (0.0-1.0); %Eosinophils 0.1 % (0.0-10.0); %Lymphocytes 7.1 % (21.0-51.0); %Monocytes 3.5 % (0.0-10.0); %Neutrophils 89.1 % (42.0-75.0); Hemoglobin 10.2 g/dL (12.0-16.0); Mean Corpuscular HGB CONC 32.1 g/dL (32.0-36.0); Mean Corpuscular Hemoglobin 28.3 pg (27.0-31.0); Mean Corpuscular Volume 88.2 fL (78.0-98.0); Mean Platelet Volume 11.3 fL (7.4-10.4); Platelet Count 132 thou/uL (130-400); RBC Distribution Width 13.4 % (11.5-14.5); Red Blood Cell (RBC) Count 3.59 mill/uL (4.20-5.40); White Blood Cell (WBC) Count 6.2 thou/uL (4.8-10.8)
[2019-08-11 04:45] LABS: Anion Gap 11 mmol/L (10-20); BUN (Urea Nitrogen) 30 mg/dL (9.8-20.1); Calc. Creatinine Clearance 58 mL/min (70-130); Calcium 7.8 mg/dL (7.8-10.44); Carbon Dioxide 24 mmol/L (23-31); Chloride 113 mmol/L (98-107); Estimated GFR-MDRD 63; Glucose 101 mg/dL (80-115); Potassium 4.4 mmol/L (3.5-5.1); Sodium 144 mmol/L (136-145)
[2019-08-11] MEDS: CEFAZOLIN 2 GM in Premix Bag 1 BAG IVPB SCH ×2 (05:17→13:33)
[2019-08-11] MEDS: Sodium Chloride 0.9% 1,000 ML IV SCH (05:17)
[2019-08-11 06:08] VITALS: BMI 32.1
--- NOTE | 2019-08-11 07:46 | RAD ---
EXAM: Single view of the chest HISTORY: Status post open heart surgery COMPARISON: 08/10/2019 FINDINGS: Single view of the chest shows a normal sized cardiomediastinal silhouette. The endotrache al and NG tube have been removed. The central venous catheter and chest tubes are unchanged in position. The patient is status post sternotomy. There appears to be a moderate left pleural effusio n. The bones are unremarkable. IMPRESSION: Moderate left pleural effusion
[2019-08-11] MEDS: Glimepiride 4 MG TAB PO SCH ×2 (08:29→20:53)
[2019-08-11] MEDS: Carvedilol 3.125 MG TAB PO SCH ×2 (08:29→17:11)
[2019-08-11] MEDS: Aspirin 325 MG TAB PO SCH (08:33)
[2019-08-11] MEDS ORDERED: Furosemide 20 MG/2 ML VIAL SLOW IVP SCH (09:00)
[2019-08-11] MEDS ORDERED: Cepastat Lozenges 1 LOZ PO PRN (10:40)
[2019-08-11] MEDS ORDERED: Cepastat Lozenges 1 LOZ PO SCH (10:45)
--- NOTE | 2019-08-11 18:01 | EKG ---
Test Reason : Blood Pressure : / mmHG Vent. Rate : 086 BPM Atrial Rate : 086 BPM P-R Int : 136 ms QRS Dur : 090 ms QT Int : 428 ms P-R-T Axes : 049 033 212 degrees QTc Int : 512 ms Normal sinus rhythm Prolonged QT Abnormal ECG When compared with ECG of 08-AUG-2019 15:08, No significant change was found Confirmed by DR. Haris REDDY ([id number]) on 08/11/2019 6:00:29 PM Referred By: Tonja DE LEON Confirmed By:DR. Haris REDDY
--- NOTE | 2019-08-11 20:19 | PDOC.HOSPP ---
- Subjective Encounter Date: 08/11/19 Encounter Time: 20:17 Subjective: Pt seen for followup re: NSTEMI. s/p CABG yesterday, in CCU today. c/o sore throat. No fevers. - Objective Vital Signs & Weight: Vital Signs (12 hours) Temp Pulse Pulse Pulse Resp BP BP 08/11/19 19:13 98 16 08/11/19 16:00 98.4 F 08/11/19 13:04 100 107 H 102/62 150/61 H 08/11/19 12:21 96 18 08/11/19 12:00 98.8 F 08/11/19 08:39 75 16 Pulse Ox Pulse Ox Pulse Ox 08/11/19 19:13 97 08/11/19 16:00 08/11/19 13:04 97 97 08/11/19 12:21 100 08/11/19 12:00 08/11/19 08:39 97 Weight Weight 128 lb 4.944 oz Most Recent Monitor Data Heart Rate from ECG 98 NIBP 106/54 NIBP BP-Mean 71 Respiration from ECG 22 SpO2 98 I&O: 08/10/19 08/11/19 08/12/19 06:59 06:59 06:59 Intake Total 920 1292.2 585 Output Total 1655 1230 Balance 920 -362.8 -645 Result Diagrams: 08/11/19 03:40 08/11/19 03:40 Additional Labs: Accuchecks 08/11/19 08/11/19 08/11/19 16:06 10:56 06:18 POC Glucose 153 H 146 H 132 H 08/11/19 08/11/19 08/11/19 03:45 02:31 01:30 POC Glucose 106 111 H 135 H 08/11/19 08/10/19 08/10/19 00:11 23:13 22:12 POC Glucose 152 H 154 H 148 H 08/10/19 08/10/19 08/10/19 21:04 20:10 16:36 POC Glucose 138 H 98 123 H 08/10/19 08/10/19 08/10/19 16:06 15:19 14:45 POC Glucose 140 H 162 H 158 H 08/10/19 14:02 POC Glucose 171 H EKG Reviewed by me: Yes (Tele: NSR) Hospitalist ROS - Review of Systems ENT: reports: throat pain Respiratory: denies: cough, shortness of breath, SOB with excertion, pleuritic pain, wheezing Cardiovascular: denies: chest pain, palpitations, orthopnea, paroxysmal noc. dyspnea, edema, light headedness - Medication Medications: Active Medications Generic Name Dose Route Start Last Admin Trade Name Freq PRN Reason Stop Dose Admin Albuterol/Ipratropium 3 ml 08/10/19 19:00 08/11/19 19:13 Duoneb NEB 3 ml [id number] ADRIANA Administration Aspirin 325 mg 08/11/19 09:00 08/11/19 08:33 Aspirin PO 325 mg DAILY ADRIANA Administration Carvedilol 3.125 mg 08/11/19 08:00 08/11/19 17:11 Coreg PO 3.125 mg BID-WM ADRIANA Administration Fentanyl 25 mcg 08/10/19 17:48 08/10/19 21:27 Sublimaze SLOW IVP 08/12/19 17:44 25 mcg Q2H PRN Administration Moderate Pain (4-6) Furosemide 20 mg 08/11/19 09:00 08/11/19 08:29 Lasix SLOW IVP 20 mg DAILY ADRIANA Administration Glimepiride 4 mg 08/11/19 09:00 08/11/19 08:29 Amaryl PO 4 mg BID ADRIANA Administration Magnesium Sulfate 1 gm/ Sodium 102 mls @ 50 mls/hr 08/11/19 09:00 08/11/19 09 :05 Chloride IVPB 08/12/19 11:03 102 mls QAM ADRIANA Administration Ketorolac Tromethamine 15 mg 08/10/19 18:00 08/11/19 17:39 Toradol IVP 08/13/19 18:01 15 mg Q6HR ADRIANA Administration Potassium Chloride 20 meq 08/10/19 17:48 08/10/19 18:47 Kcl IVPB 20 meq PRN PRN Administration K level </= 4.0 Sodium Chloride 10 ml 08/11/19 09:00 08/11/19 08:32 Flush - Normal Saline IVF 10 ml Q12HR ADRIANA Administration - Exam General Appearance: awake alert Eye: anicteric sclera ENT: moist mucosa Neck: supple Heart: RRR Respiratory: no wheezes, rales Gastrointestinal: soft, non-tender Extremities: no cyanosis Skin: no rashes Psychiatric: normal affect, normal behavior Hosp A/P - Plan - Assessment (1) NSTEMI Status: Acute (2) Acute on chronic systolic heart failure NYHA class 3 Status: Acute (3) DM (diabetes mellitus) Code(s): E11.9 - TYPE 2 DIABETES MELLITUS WITHOUT COMPLICATIONS Status: Chronic (4) Hypercholesteremia Code(s): E78.00 - PURE HYPERCHOLESTEROLEMIA, UNSPECIFIED Status: Chronic (5) HTN (hypertension) Code(s): I10 - ESSENTIAL (PRIMARY) HYPERTENSION Status: Chronic - Plan - diuresis w IV lasix - s/p cath, s/p CABG - 02 supplementation PRN -accuchecks and insulin sliding scale -PRN lozenges
[2019-08-11] MEDS: Atorvastatin Calcium 40 MG TAB PO SCH (20:53)
[2019-08-12 04:19] LABS: #Lymphocytes 0.7 thou/uL (1.20-3.40); #Monocytes 0.3 thou/uL (0.11-0.59); #Neutrophils 4.5 thou/uL (1.40-6.50); %Basophils 0.2 % (0.0-1.0); %Eosinophils 0.2 % (0.0-10.0); %Lymphocytes 11.9 % (21.0-51.0); %Monocytes 5.1 % (0.0-10.0); %Neutrophils 82.7 % (42.0-75.0); Hemoglobin 8.5 g/dL (12.0-16.0); Mean Corpuscular HGB CONC 32.5 g/dL (32.0-36.0); Mean Corpuscular Hemoglobin 28.6 pg (27.0-31.0); Mean Corpuscular Volume 87.9 fL (78.0-98.0); Mean Platelet Volume 11.4 fL (7.4-10.4); Platelet Count 119 thou/uL (130-400); RBC Distribution Width 13.3 % (11.5-14.5); Red Blood Cell (RBC) Count 2.96 mill/uL (4.20-5.40); White Blood Cell (WBC) Count 5.5 thou/uL (4.8-10.8)
[2019-08-12 04:42] LABS: Anion Gap 11 mmol/L (10-20); BUN (Urea Nitrogen) 36 mg/dL (9.8-20.1); Calc. Creatinine Clearance 58 mL/min (70-130); Calcium 7.8 mg/dL (7.8-10.44); Carbon Dioxide 24 mmol/L (23-31); Chloride 108 mmol/L (98-107); Estimated GFR-MDRD 65; Glucose 187 mg/dL (80-115); Potassium 4.3 mmol/L (3.5-5.1); Sodium 139 mmol/L (136-145)
[2019-08-12] MEDS: Ketorolac Tromethamine 30 MG/ML VIAL IVP SCH ×3 (05:20→18:06)
[2019-08-12] MEDS: Insulin Regular 300 UNITS/3 ML VIAL SC PRN ×3 (05:23→18:07)
[2019-08-12] MEDS ORDERED: Nitroglycerin 0.4 MG TAB (25 Tab Bottle) SL PRN (07:18)
[2019-08-12] MEDS ORDERED: diphenhydrAMINE 25 MG CAP PO PRN (07:18)
[2019-08-12] MEDS ORDERED: Zolpidem Tartrate 5 MG TAB PO PRN (07:18)
[2019-08-12] MEDS ORDERED: Mag-Al 1200 mg/1200 mg/30 ML UDCUP PO PRN (07:18)
[2019-08-12] MEDS ORDERED: Artificial Tears 18 DROP/0.9 ML EA EYE PRN (07:18)
[2019-08-12] MEDS ORDERED: Mineral Oil ENEMA PR PRN (07:18)
[2019-08-12] MEDS ORDERED: Bisacodyl 5 MG TAB PO PRN (07:18)
[2019-08-12] MEDS ORDERED: Bisacodyl 10 MG SUPP PR PRN (07:18)
--- NOTE | 2019-08-12 07:58 | RAD ---
Exam: Chest one view HISTORY:Status post open heart surgery Comparison: 08/11/2019 FINDINGS: Lines and tubes: Stable left-sided internal jugular vascular catheter. Interval removal of a mediasti nal drainage catheter and a right-sided chest tube Cardiac silhouette:Cardiomegaly. Sternotomy wires. Aorta: Unremarkable Pulmonary vessels: Normal Costophrenic angles: Small left-sided pleural effusion LUNGS: Persistent opacification the left lung parenchyma Pneumothorax: None Osseous abnormalities: None IMPRESSION: 1. Findings compatible with recent open heart surgery. 2. Worsening opacification of the left hemithorax due to pleural and parenchymal changes. 3. Cardiomegaly.
[2019-08-12] MEDS: Carvedilol 3.125 MG TAB PO SCH ×2 (08:42→18:06)
[2019-08-12] MEDS: Aspirin 325 MG TAB PO SCH (08:42)
[2019-08-12] MEDS: Furosemide 40 MG/4 ML VIAL SLOW IVP SCH (08:42)
[2019-08-12] MEDS: Potassium Chloride 10 MEQ TAB PO SCH (08:42)
[2019-08-12] MEDS: Glimepiride 4 MG TAB PO SCH ×2 (08:42→21:13)
--- NOTE | 2019-08-12 19:43 | PDOC.HOSPP ---
- Subjective Encounter Date: 08/12/19 Encounter Time: 10:00 Subjective: Pt seen for followup re: NSTEMI. Feels better, no complaints. - Objective Vital Signs & Weight: Vital Signs (12 hours) Temp Pulse Pulse Pulse Resp BP BP 08/12/19 18:41 102 H 16 08/12/19 16:46 99.8 F H 104 H 18 08/12/19 16:00 104 H 16 08/12/19 13:51 103 H 102 H 116/56 L 117/55 L 08/12/19 12:16 98.7 F 105 H 18 08/12/19 10:30 98.8 F 102 H 18 08/12/19 09:10 111 H 110 H 122/69 118/64 08/12/19 07:57 104 H 17 BP Pulse Ox Pulse Ox Pulse Ox 08/12/19 18:41 96 08/12/19 16:46 120/63 98 08/12/19 16:00 08/12/19 13:51 100 99 08/12/19 12:16 115/58 L 100 08/12/19 10:30 120/59 L 97 08/12/19 09:10 96 98 08/12/19 07:57 96 Weight Weight 128 lb 11.999 oz Most Recent Monitor Data Heart Rate from ECG 103 NIBP 127/68 NIBP BP-Mean 87 Respiration from ECG 16 SpO2 100 I&O: 08/11/19 08/12/19 08/13/19 06:59 06:59 06:59 Intake Total 1292.2 1099 480 Output Total 1657 2365 910 Balance -362.8 -656 -430 Result Diagrams: 08/12/19 03:24 08/12/19 03:24 Additional Labs: Accuchecks 08/12/19 08/12/19 08/12/19 16:52 10:53 05:27 POC Glucose 216 H 215 H 205 H 08/11/19 20:59 POC Glucose 202 H Labs and MARs reviewed by me EKG Reviewed by me: Yes (Tele: NSR) Hospitalist ROS - Review of Systems Cardiovascular: denies: chest pain, palpitations, orthopnea, paroxysmal noc. dyspnea, edema, light headedness Gastrointestinal: denies: nausea, vomiting, abdominal pain, diarrhea Genitourinary: denies: dysuria, frequency, incontinence, hematuria - Medication Medications: Active Medications Generic Name Dose Route Start Last Admin Trade Name Freq PRN Reason Stop Dose Admin Albuterol/Ipratropium 3 ml 08/10/19 19:00 08/12/19 18:41 Duoneb NEB 3 ml [id number] ADRIANA Administration Aspirin 325 mg 08/11/19 09:00 08/12/19 08:42 Aspirin PO 325 mg DAILY ADRIANA Administration Atorvastatin Calcium 40 mg 08/11/19 21:00 08/11/19 20:53 Lipitor PO 40 mg HS ADRIANA Administration Carvedilol 3.125 mg 08/11/19 08:00 08/12/19 18:06 Coreg PO 3.125 mg BID-WM ADRIANA Administration Furosemide 40 mg 08/12/19 07:17 08/12/19 08:42 Lasix SLOW IVP 40 mg DAILY ADRIANA Administration Glimepiride 4 mg 08/11/19 09:00 08/12/19 08:42 Amaryl PO 4 mg BID ADRIANA Administration Insulin Human Regular 0 units 08/10/19 18:21 08/12/19 18:07 Humulin R SC 6 unit Q4H PRN Administration POST OP SLIDING SCALE Protocol Ketorolac Tromethamine 15 mg 08/10/19 18:00 08/12/19 18:06 Toradol IVP 08/13/19 18:01 15 mg Q6HR ADRIANA Administration Potassium Chloride 20 meq 08/10/19 17:48 08/10/19 18:47 Kcl IVPB 20 meq PRN PRN Administration K level </= 4.0 Potassium Chloride 10 meq 08/12/19 08:00 08/12/19 08:42 Klor-Con 10 PO 10 meq QAM-WM ADRIANA Administration Sodium Chloride 10 ml 08/12/19 09:00 08/12/19 08:43 Flush - Normal Saline IVF 10 ml Q12HR ADRIANA Administration - Exam General Appearance: awake alert General - other findings: Obese Eye: anicteric sclera ENT: moist mucosa Neck: supple Heart: RRR Respiratory: CTAB Gastrointestinal: soft, non-tender Extremities: no cyanosis Musculoskeletal: no muscle wasting Psychiatric: normal affect, normal behavior Hosp A/P - Plan - Assessment (1) NSTEMI Status: Acute (2) Acute on chronic systolic heart failure NYHA class 3 Status: Acute (3) DM (diabetes mellitus) Code(s): E11.9 - TYPE 2 DIABETES MELLITUS WITHOUT COMPLICATIONS Status: Chronic (4) Hypercholesteremia Code(s): E78.00 - PURE HYPERCHOLESTEROLEMIA, UNSPECIFIED Status: Chronic (5) HTN (hypertension) Code(s): I10 - ESSENTIAL (PRIMARY) HYPERTENSION Status: Chronic - Plan -s/p CABG - IV lasix 40 mg IV daily - 02 supplementation PRN -accuchecks and insulin sliding scale -PRN lozenges
[2019-08-12] MEDS ORDERED: Dextrose 5% in Water 1,000 ML IV PRN (19:48)
[2019-08-12] MEDS: Atorvastatin Calcium 40 MG TAB PO SCH (21:13)
[2019-08-13] MEDS: Ketorolac Tromethamine 30 MG/ML VIAL IVP SCH ×4 (00:46→17:30)
--- NOTE | 2019-08-13 08:22 | PDOC.CPN ---
- Subjective Date: 08/13/19 Time: 09:10 Interval history: Ms. Moncada is awake, sitting up in bed. She denies any chest pain, SOB, or incisional discomfort. Reports had BM this morning. Walked short length of cunningham s/ difficulty. No overnight events on telemetry. - Review of Systems General: denies: fever/chills, weight/appetite/sleep changes, night sweats, fatigue Respiratory: denies: cough, congestion, shortness of breath, exercise intolerance Cardiovascular: denies: chest pain, palpitation, edema, paroxysmal nocturnal dyspnea, orthopnea Gastrointestinal: denies: nausea, vomiting, diarrhea, constipation, abd pain, GI bleeding Musculoskeletal: denies: pain, tenderness, stiffness, swelling, arthritis/ arthralgias Neurological: denies: numbness, syncope, seizure, weakness - Objective Allergies/Adverse Reactions: Allergies Allergy/AdvReac Type Severity Reaction Status Date / Time No Known Drug Allergies Allergy Verified 05/13/19 14:20 Visit Medications: Current Medications Acetaminophen (Tylenol) 650 mg PO Q6H PRN PRN Reason: Headache/Fever Or Mild Pain Al Hydroxide/Mg Hydroxide (Maalox) 30 ml PO Q4H PRN PRN Reason: Indigestion Albuterol/Ipratropium (Duoneb) 3 ml NEB [id number] [facility] Last Admin: 08/13/19 06:35 Dose: 3 ml Artificial Tears (Tears Naturale) 0 drop EA EYE PRN PRN PRN Reason: Dry Eyes Aspirin (Aspirin) 325 mg PO DAILY [facility] Last Admin: 08/12/19 08:42 Dose: 325 mg Atorvastatin Calcium (Lipitor) 40 mg PO HS [facility] Last Admin: 08/12/19 21:13 Dose: 40 mg Bisacodyl (Dulcolax) 10 mg PO Q12H PRN PRN Reason: Constipation Bisacodyl (Dulcolax) 10 mg LA Q12H PRN PRN Reason: Constipation Carvedilol (Coreg) 3.125 mg PO BID-[facility] Last Admin: 08/12/19 18:06 Dose: 3.125 mg Dextrose/Water (Dextrose 50%) 25 gm SLOW IVP PRN PRN PRN Reason: PER HYPOGLYCEMIC PROTOCOL Diphenhydramine HCl (Benadryl) 25 mg PO Q6H PRN PRN Reason: Itching & Insomnia or Neymar Tyler Furosemide (Lasix) 40 mg SLOW IVP DAILY [facility] Last Admin: 08/12/19 08:42 Dose: 40 mg Glimepiride (Amaryl) 4 mg PO BID-[facility] Glucagon (Glucagon) 1 mg SC PRN PRN PRN Reason: PER HYPOGLYCEMIC PROTOCOL Guaifenesin/Dextromethorphan (Robitussin Dm) 15 ml PO Q4H PRN PRN Reason: Cough Hydralazine HCl (Apresoline) 10 mg SLOW IVP Q6H PRN PRN Reason: To Maintain SBP< 140mmHG Dextrose/Water (D5w) 1,000 mls @ 0 mls/hr IV .Q0M PRN PRN Reason: Hypoglycemia Insulin Human Lispro (Humalog) 0 units SC .MODERATE SLIDING SC PRN PRN Reason: Moderate Correctional Scale Ketorolac Tromethamine (Toradol) 15 mg IVP Q6HR [facility] Stop: 08/13/19 18:01 Last Admin: 08/13/19 06:06 Dose: 15 mg Mineral Oil (Fleet Mineral Oil) 133 ml LA DAILYPRN PRN PRN Reason: Constipation Miscellaneous Medication (Post-Op Sliding Scale) 1 each FS ASDIR [facility] Nitroglycerin (Nitrostat) 0.4 mg SL Q5MIN PRN PRN Reason: Chest Pain Ondansetron HCl (Zofran) 4 mg IVP Q6H PRN PRN Reason: Nausea/Vomiting Potassium Chloride (Kcl) 20 meq IVPB PRN PRN PRN Reason: K level </= 4.0 Last Admin: 08/10/19 18:47 Dose: 20 meq Potassium Chloride (Klor-Con 10) 10 meq PO QAM-[facility] Last Admin: 08/12/19 08:42 Dose: 10 meq Promethazine HCl (Phenergan) 6.25 mg IM Q4H PRN PRN Reason: Nausea/Vomiting Sodium Chloride (Flush - Normal Saline) 10 ml IVF PRN PRN PRN Reason: Saline Flush Last Admin: 08/13/19 06:07 Dose: 10 ml Sodium Chloride (Flush - Normal Saline) 10 ml IVF Q12HR [facility] Last Admin: 08/12/19 21:14 Dose: 10 ml Throat Lozenges (Cepastat Lozenges) 1 shelli PO Q2H PRN PRN Reason: Sore Throat Tramadol HCl (Ultram) 50 mg PO Q6H PRN PRN Reason: Moderate Pain (4-6) Zolpidem Tartrate (Ambien) 5 mg PO HSPRN PRN PRN Reason: Insomnia Vital Signs & Weight: Vital Signs Temp Pulse Resp BP Pulse Ox 08/13/19 07:17 98.4 F 102 H 24 H 111/55 L 99 08/13/19 06:35 104 H 10 L 08/13/19 04:00 98.1 F 105 H 22 H 128/59 L 98 08/13/19 01:19 94 L 08/13/19 01:15 107 H 16 94 L 08/13/19 00:00 96.9 F L 107 H 18 112/56 L 94 L Weight 143 lb 11.2 oz - Quality Measures Condition: Coronary Artery Disease, Heart Failure, Myocardial Infarction CV meds: Beta Gatito: Yes, MARIN/ARB: No, Statin: Yes, ASA: Yes, Plavix/Effient/ Brilinta: No, Anticoagulant: No - Physical Exam General: alert & oriented x3, appears well, no apparent distress HEENT: mucus membranes moist Neck: supple neck, no JVD/HJR Cardiac: regular rate and rhythm, no murmur, S1/S2 Lungs: clear to auscultation, normal breath sounds, no wheeze, rales, rhonchi Neuro: grossly intact Abdomen: active bowel sounds, soft, non-tender Extremities: no cyanosis, no clubbing, no edema, 1+ LE edema Skin: clear - Labs Result Diagrams: 08/12/19 03:24 08/12/19 03:24 Troponin/CKMB CK-MB (CK-2) 3.8 ng/mL (0-6.6) 08/08/19 00:43 Troponin I 2.801 ng/mL (< 0.028) H* 08/08/19 08:13 - Telemetry Sinus rhythms and dysrhythmias: sinus tachycardia (HR 100s) - Assessment/Plan Assessment/Plan: Assessment: 1. CAD, NSTEMI, S/P CABG 2. Acute Systolic HF, EF 20-25% 3. Moderate Mitral Regurgitation 4. HTN 5. Hypercholesterolemia 6. DM, Type II Plan: Doing well, encouraged to continue ambulation. Documented weight yesterday was 128, 143 today? BP remains variable, Hgb trending down (10.2 to 8.5 today), sinus tach (low 100s) since CABG. Repeat CBC, BMP, chest x-ray in am (moderate left pleural effusion). Continue low dose carvedilol, add ACEi as BP allows.
[2019-08-13] MEDS: Glimepiride 4 MG TAB PO SCH ×2 (08:24→17:29)
[2019-08-13] MEDS: Carvedilol 3.125 MG TAB PO SCH (08:24)
[2019-08-13] MEDS: Potassium Chloride 10 MEQ TAB PO SCH (08:24)
[2019-08-13] MEDS: Aspirin 325 MG TAB PO SCH (08:24)
[2019-08-13] MEDS ORDERED: HYDROcodone/Chlorphen Polis 5 ML UDCUP PO PRN (10:46)
[2019-08-13] MEDS: HumaLOG 300 UNITS/3 ML VIAL SC PRN ×2 (10:50→17:33)
[2019-08-13] MEDS: Furosemide 40 MG/4 ML VIAL SLOW IVP SCH (11:01)
[2019-08-13] MEDS: Guaifenesin DM 100-10/5 ML UDCUP PO PRN ×2 (11:10→19:56)
--- NOTE | 2019-08-13 14:39 | EKG ---
Test Reason : Blood Pressure : / mmHG Vent. Rate : 123 BPM Atrial Rate : 123 BPM P-R Int : 138 ms QRS Dur : 066 ms QT Int : 288 ms P-R-T Axes : 045 013 143 degrees QTc Int : 412 ms Sinus tachycardia Possible Left atrial enlargement Nonspecific T wave abnormality Abnormal ECG Confirmed by ELENA GUERRA ([id number]), web editor BEE PRATT ([id number]) on 08/13/2019 2:38:55 PM Referred By: Confirmed By:ELENA GUERRA
--- NOTE | 2019-08-13 17:01 | PRG ---
DATE OF SERVICE: 08/13/2019 SUBJECTIVE: A 64-year-old female with hypertension, hyperlipidemia, and diabetes mellitus type 2, presented to the hospital on 08/08/2019 with chest discomfort. Her workup was consistent with congestive heart failure exacerbation. Echocardiogram showed ejection fraction 20% to 25%. A cardiac catheterization was performed by Dr. Goodman, that showed left main and 3-vessel coronary artery disease. The patient underwent coronary artery bypass grafting on 08/10/2019. At this time, the patient denies any chest discomfort, shortness of breath, or palpitations. No syncope reported. REVIEW OF SYSTEMS: All other review of systems reviewed and were found negative. Telemetry monitoring by my review showed sinus rhythm/sinus tachycardia. CURRENT MEDICATIONS: Reviewed. Beta blockers are currently on hold due to low blood pressure. The patient is also on glimepiride with moderate sliding scale. PHYSICAL EXAMINATION: VITAL SIGNS: Temperature 98.3 with pulse rate of 98, respirations of 16, blood pressure of 107/53 earlier. Latest blood pressure is 116/62. GENERAL: A 64-year-old female, in no apparent distress. LUNGS: Diminished air entry at bilateral bases with scattered rhonchi. HEART: S1 and S2 present. Regular. ABDOMEN: Soft. Bowel sounds present. EXTREMITIES: No edema or calf tenderness. NEUROLOGIC: Grossly nonfocal. LABORATORY FINDINGS: CBC showed WBC of 5.5 with hemoglobin of 8.5. There were no labs today. Chemistry showed sodium 139, potassium 4.3, chloride 108, bicarb 24, BUN 36, and creatinine 0.87. Chest x-ray from yesterday by my review was negative for infiltrates. IMPRESSION: 1. [id number] systolic heart failure exacerbation. 2. [id number] myocardial infarction, present on admission. 3. Coronary artery disease status post coronary artery bypass grafting. 4. Hyperlipidemia. 5. Hypertension. 6. Diabetes mellitus, type 2. 7. Obesity with a body mass index of 36. 8. Chronic kidney disease, stage 3. 9. Abnormal liver function tests on admission, probably secondary to passive hepatic congestion. PLAN: We will continue telemetry monitoring. Carvedilol, MARIN inhibitor, and Aldactone on hold due to hypotension. We will continue sliding scale with glimepiride. Recheck labs in a.m. Continue cardiac rehab. Repeat chest x-ray in a.m. The patient was counseled on congestive heart failure. The patient understands the above plan of care. Job ID: [id number]
[2019-08-13] MEDS: Atorvastatin Calcium 40 MG TAB PO SCH (19:56)
[2019-08-13] MEDS: Docusate 100 MG CAP PO SCH (19:56)
[2019-08-14 04:27] LABS: #Eosinphils 0.3 thou/uL (0.0-0.7); #Lymphocytes 0.7 thou/uL (1.20-3.40); #Monocytes 0.3 thou/uL (0.11-0.59); #Neutrophils 3.2 thou/uL (1.40-6.50); %Basophils 0.2 % (0.0-1.0); %Eosinophils 6.3 % (0.0-10.0); %Lymphocytes 15.1 % (21.0-51.0); %Monocytes 6.3 % (0.0-10.0); Hemoglobin 8.3 g/dL (12.0-16.0); Mean Corpuscular HGB CONC 34.1 g/dL (32.0-36.0); Mean Corpuscular Hemoglobin 29.8 pg (27.0-31.0); Mean Corpuscular Volume 87.2 fL (78.0-98.0); Mean Platelet Volume 10.1 fL (7.4-10.4); Platelet Count 120 thou/uL (130-400); RBC Distribution Width 12.9 % (11.5-14.5); Red Blood Cell (RBC) Count 2.79 mill/uL (4.20-5.40); White Blood Cell (WBC) Count 4.5 thou/uL (4.8-10.8)
[2019-08-14 04:50] LABS: Anion Gap 13 mmol/L (10-20); BUN (Urea Nitrogen) 30 mg/dL (9.8-20.1); Calc. Creatinine Clearance 74 mL/min (70-130); Calcium 7.9 mg/dL (7.8-10.44); Carbon Dioxide 23 mmol/L (23-31); Chloride 105 mmol/L (98-107); Estimated GFR-MDRD 75; Glucose 144 mg/dL (80-115); Magnesium 2.4 mg/dL (1.6-2.6); Potassium 4.5 mmol/L (3.5-5.1); Sodium 136 mmol/L (136-145)
[2019-08-14] MEDS: Docusate 100 MG CAP PO SCH ×2 (08:28→20:31)
[2019-08-14] MEDS: Aspirin 325 MG TAB PO SCH (08:28)
[2019-08-14] MEDS: Glimepiride 4 MG TAB PO SCH ×2 (08:28→16:49)
[2019-08-14] MEDS: Potassium Chloride 10 MEQ TAB PO SCH (08:28)
[2019-08-14] MEDS: Guaifenesin DM 100-10/5 ML UDCUP PO PRN ×3 (08:29→20:32)
[2019-08-14] MEDS: Furosemide 40 MG/4 ML VIAL SLOW IVP SCH (08:29)
--- NOTE | 2019-08-14 08:57 | PDOC.CPN ---
- Subjective Date: 08/14/19 Time: 08:45 Interval history: Ms. Moncada is awake, only complaint is a dry cough, she denies any sputum. RN at bedside, states patient has been given Robitussin with little improvement. Ambulated this morning, denies any exertional symptoms, states she slept well last night. Denies incisional pain, states she had a bowel movement this morning. Denies any dizziness and/or lightheadedness. No overnight events on telemetry. - Review of Systems General: denies: fever/chills, weight/appetite/sleep changes, night sweats, fatigue Respiratory: reports: cough. denies: congestion, shortness of breath, exercise intolerance Cardiovascular: denies: chest pain, palpitation, edema, paroxysmal nocturnal dyspnea, orthopnea Gastrointestinal: denies: nausea, vomiting, diarrhea, constipation, abd pain, GI bleeding Musculoskeletal: denies: pain, tenderness, stiffness, swelling, arthritis/ arthralgias Neurological: denies: numbness, syncope, seizure, weakness - Objective Allergies/Adverse Reactions: Allergies Allergy/AdvReac Type Severity Reaction Status Date / Time No Known Drug Allergies Allergy Verified 05/13/19 14:20 Visit Medications: Current Medications Acetaminophen (Tylenol) 650 mg PO Q6H PRN PRN Reason: Headache/Fever Or Mild Pain Al Hydroxide/Mg Hydroxide (Maalox) 30 ml PO Q4H PRN PRN Reason: Indigestion Albuterol/Ipratropium (Duoneb) 3 ml NEB [id number] [facility] Last Admin: 08/14/19 06:40 Dose: 3 ml Artificial Tears (Tears Naturale) 0 drop EA EYE PRN PRN PRN Reason: Dry Eyes Aspirin (Aspirin) 325 mg PO DAILY [facility] Last Admin: 08/14/19 08:28 Dose: 325 mg Atorvastatin Calcium (Lipitor) 40 mg PO HS [facility] Last Admin: 08/13/19 19:56 Dose: 40 mg Bisacodyl (Dulcolax) 10 mg PO Q12H PRN PRN Reason: Constipation Bisacodyl (Dulcolax) 10 mg ND Q12H PRN PRN Reason: Constipation Chlorphenir/Hydrocodone Polistirex (Tussionex) 5 ml PO Q12H PRN PRN Reason: Cough Dextrose/Water (Dextrose 50%) 25 gm SLOW IVP PRN PRN PRN Reason: PER HYPOGLYCEMIC PROTOCOL Diphenhydramine HCl (Benadryl) 25 mg PO Q6H PRN PRN Reason: Itching & Insomnia or Neymar Tyler Docusate Sodium (Colace) 100 mg PO BID [facility] Last Admin: 08/14/19 08:28 Dose: Not Given Furosemide (Lasix) 40 mg SLOW IVP DAILY [facility] Last Admin: 08/14/19 08:29 Dose: 40 mg Glimepiride (Amaryl) 4 mg PO BID-[facility] Last Admin: 08/14/19 08:28 Dose: 4 mg Glucagon (Glucagon) 1 mg SC PRN PRN PRN Reason: PER HYPOGLYCEMIC PROTOCOL Guaifenesin/Dextromethorphan (Robitussin Dm) 15 ml PO Q4H PRN PRN Reason: Cough Last Admin: 08/14/19 08:29 Dose: 15 ml Hydralazine HCl (Apresoline) 10 mg SLOW IVP Q6H PRN PRN Reason: To Maintain SBP< 140mmHG Dextrose/Water (D5w) 1,000 mls @ 0 mls/hr IV .Q0M PRN PRN Reason: Hypoglycemia Insulin Human Lispro (Humalog) 0 units SC .MODERATE SLIDING SC PRN PRN Reason: Moderate Correctional Scale Last Admin: 08/13/19 17:33 Dose: 2 unit Mineral Oil (Fleet Mineral Oil) 133 ml ND DAILYPRN PRN PRN Reason: Constipation Miscellaneous Medication (Post-Op Sliding Scale) 1 each FS ASDIR [facility] Nitroglycerin (Nitrostat) 0.4 mg SL Q5MIN PRN PRN Reason: Chest Pain Ondansetron HCl (Zofran) 4 mg IVP Q6H PRN PRN Reason: Nausea/Vomiting Potassium Chloride (Kcl) 20 meq IVPB PRN PRN PRN Reason: K level </= 4.0 Last Admin: 08/10/19 18:47 Dose: 20 meq Potassium Chloride (Klor-Con 10) 10 meq PO QAM-[facility] Last Admin: 08/14/19 08:28 Dose: 10 meq Promethazine HCl (Phenergan) 6.25 mg IM Q4H PRN PRN Reason: Nausea/Vomiting Sodium Chloride (Flush - Normal Saline) 10 ml IVF PRN PRN PRN Reason: Saline Flush Last Admin: 08/13/19 06:07 Dose: 10 ml Sodium Chloride (Flush - Normal Saline) 10 ml IVF Q12HR [facility] Last Admin: 08/14/19 08:29 Dose: 10 ml Throat Lozenges (Cepastat Lozenges) 1 shelli PO Q2H PRN PRN Reason: Sore Throat Tramadol HCl (Ultram) 50 mg PO Q6H PRN PRN Reason: Moderate Pain (4-6) Zolpidem Tartrate (Ambien) 5 mg PO HSPRN PRN PRN Reason: Insomnia Vital Signs & Weight: Vital Signs Temp Pulse Resp BP Pulse Ox 08/14/19 07:26 98.9 F 109 H 17 154/66 H 94 L 08/14/19 06:40 106 H 16 08/14/19 03:36 98.0 F 105 H 20 130/78 95 08/14/19 00:37 94 L 08/14/19 00:34 109 H 16 94 L Weight 143 lb 6 oz - Quality Measures Condition: Coronary Artery Disease, Heart Failure, Myocardial Infarction CV meds: Beta Gatito: Yes, MARIN/ARB: No, Statin: Yes, ASA: Yes, Plavix/Effient/ Brilinta: No, Anticoagulant: No - Physical Exam General: alert & oriented x3, appears well, no apparent distress HEENT: mucus membranes moist Neck: supple neck, no JVD/HJR Cardiac: regular rate and rhythm, no murmur, S1/S2 Lungs: no wheezes, no rales, no rhonchi, decreased breath sounds (LLL) Neuro: grossly intact Abdomen: active bowel sounds, soft, non-tender Extremities: no cyanosis, no clubbing, no edema Skin: clear Musculoskeletal: normal range of motion - Labs Result Diagrams: 08/14/19 04:05 08/14/19 04:05 Troponin/CKMB CK-MB (CK-2) 3.8 ng/mL (0-6.6) 08/08/19 00:43 Troponin I 2.801 ng/mL (< 0.028) H* 08/08/19 08:13 - Telemetry Sinus rhythms and dysrhythmias: sinus tachycardia - Assessment/Plan Assessment/Plan: Assessment: 1. CAD, NSTEMI, S/P CABG 2. Acute Systolic HF, EF 20-25% 3. Moderate Mitral Regurgitation 4. HTN 5. Hypercholesterolemia 6. DM, Type II Plan: Feeling better today, major complaint today is cough. Weight up, single dose metolazone per CV. BP has improved, will resume low-dose carvedilol tomorrow. CXR today shows moderate pleural effusion, but decreasing in size. Hemoglobin stable, 8.3 (8.5 yesterday). Encouraged ambulation, she is deconditioned, IS use, Tussionex for cough. Will need LifeVest prior to discharge.
[2019-08-14] MEDS ORDERED: Metolazone 5 MG TAB PO SCH (10:15)
--- NOTE | 2019-08-14 11:02 | RAD ---
SINGLE VIEW CHEST: HISTORY: Left pleural effusion. COMPARISON: 08/12/19 FINDINGS: A single view of the chest shows an enlarged but stable cardiomediastinal silhouette. The patient is status post sternotomy. The central venous catheter is unchanged in position. There is a moderate lef t pleural effusion, which appears to have decreased in size compared to the prior exam. IMPRESSION: Decreasing size of left pleural effusion. POS: EAA
[2019-08-14] MEDS: HumaLOG 300 UNITS/3 ML VIAL SC PRN (11:30)
--- NOTE | 2019-08-14 18:23 | PDOC.HOSPP ---
- Subjective Encounter Date: 08/14/19 Encounter Time: 15:00 Subjective: Patient seen and examined for CP/SOB. Feels better. Cough improving. No new complaints. No overnight events - Objective Vital Signs & Weight: Vital Signs (12 hours) Temp Pulse Pulse Pulse Resp BP BP 08/14/19 17:59 104 H 16 08/14/19 15:24 97.9 F 106 H 19 08/14/19 14:41 110 H 116 H 145/77 H 126/61 08/14/19 12:50 102 H 20 08/14/19 11:12 97.6 F 105 H 18 08/14/19 10:14 109 H 106 H 137/70 126/66 08/14/19 07:26 98.9 F 109 H 17 08/14/19 06:40 106 H 16 BP Pulse Ox Pulse Ox Pulse Ox 08/14/19 17:59 98 08/14/19 15:24 129/76 98 08/14/19 14:41 96 97 08/14/19 12:50 08/14/19 11:12 135/75 98 08/14/19 10:14 96 98 08/14/19 07:26 154/66 H 94 L 08/14/19 06:40 Weight Weight 143 lb 6 oz Most Recent Monitor Data Heart Rate from ECG 103 NIBP 127/68 NIBP BP-Mean 87 Respiration from ECG 16 SpO2 100 I&O: 08/13/19 08/14/19 08/15/19 06:59 06:59 06:59 Intake Total 054 670 7602 Output Total 1210 1000 1500 Balance -678 -387 -682 Result Diagrams: 08/14/19 04:05 08/14/19 04:05 Additional Labs: Accuchecks 08/14/19 08/14/19 08/14/19 16:56 11:11 05:36 POC Glucose 127 H 259 H 170 H 08/13/19 20:31 POC Glucose 176 H Radiology Reviewed by me: Yes (CXR - improving left pleural effusion) EKG Reviewed by me: Yes (Tele SR) Hospitalist ROS - Review of Systems Respiratory: reports: cough, dry Cardiovascular: denies: chest pain, palpitations, orthopnea, paroxysmal noc. dyspnea, edema, light headedness, other Gastrointestinal: denies: nausea, vomiting, abdominal pain, diarrhea, constipation, melena, hematochezia, other - Medication Medications: Active Medications Generic Name Dose Route Start Last Admin Trade Name Freq PRN Reason Stop Dose Admin Albuterol/Ipratropium 3 ml 08/10/19 19:00 08/14/19 17:59 Duoneb NEB 3 ml [id number] ADRIANA Administration Aspirin 325 mg 08/11/19 09:00 08/14/19 08:28 Aspirin PO 325 mg DAILY ADRIANA Administration Atorvastatin Calcium 40 mg 08/11/19 21:00 08/13/19 19:56 Lipitor PO 40 mg HS ADRIANA Administration Chlorphenir/Hydrocodone Polistirex 5 ml 08/13/19 10:46 08/14/19 12:52 Tussionex PO 5 ml Q12H PRN Administration Cough Docusate Sodium 100 mg 08/13/19 21:00 08/14/19 08:28 Colace PO Not Given BID ADRIANA Furosemide 40 mg 08/12/19 07:17 08/14/19 08:29 Lasix SLOW IVP 40 mg DAILY ADRIANA Administration Glimepiride 4 mg 08/13/19 08:00 08/14/19 16:49 Amaryl PO 4 mg BID-WM ADRIANA Administration Guaifenesin/Dextromethorphan 15 ml 08/12/19 07:18 08/14/19 14:22 Robitussin Dm PO 15 ml Q4H PRN Administration Cough Insulin Human Lispro 0 units 08/12/19 19:48 08/14/19 11:30 Humalog SC 6 unit .MODERATE SLIDING SC PRN Administration Moderate Correctional Scale Potassium Chloride 20 meq 08/10/19 17:48 08/10/19 18:47 Kcl IVPB 20 meq PRN PRN Administration K level </= 4.0 Potassium Chloride 10 meq 08/12/19 08:00 08/14/19 08:28 Klor-Con 10 PO 10 meq QAM-WM ADRIANA Administration Sodium Chloride 10 ml 08/11/19 07:42 08/13/19 06:07 Flush - Normal Saline IVF 10 ml PRN PRN Administration Saline Flush Sodium Chloride 10 ml 08/12/19 09:00 08/14/19 08:29 Flush - Normal Saline IVF 10 ml Q12HR ADRIANA Administration - Exam General Appearance: NAD Heart: RRR, no gallops Respiratory: no wheezes, rhonchi (at bases) Gastrointestinal: non-tender, non-distended Extremities: no cyanosis, no clubbing Psychiatric: normal affect, A&O x 3 Hosp A/P - Plan DVT proph w/SCDs 1. [id number] systolic heart failure exacerbation. 2. NSTEMI 3. CAD s/p CABG 4. Hyperlipidemia. 5. Hypertension. 6. Diabetes mellitus, type 2. 7. Hypokalemia 8. CKD 3. 9. Abnormal LFTs probably secondary to passive hepatic congestion. 10. Left Pleural effusion 11. Pancytopenia 12. Obesity BMI 36. 13. Physical deconditioning PLAN: s/p 1 dose of Metolazone Replace Potasium Carvedilol, MARIN inhibitor, and Aldactone on hold due to hypotension. cont sliding scale Cont cardiac rehab Will need LifeVest prior to discharge. BMP in AM
[2019-08-14] MEDS: Atorvastatin Calcium 40 MG TAB PO SCH (20:31)
[2019-08-15 04:30] LABS: Anion Gap 11 mmol/L (10-20); BUN (Urea Nitrogen) 18 mg/dL (9.8-20.1); Calc. Creatinine Clearance 79 mL/min (70-130); Calcium 8.6 mg/dL (7.8-10.44); Carbon Dioxide 29 mmol/L (23-31); Chloride 103 mmol/L (98-107); Estimated GFR-MDRD 81; Glucose 138 mg/dL (80-115); Potassium 4.5 mmol/L (3.5-5.1); Sodium 138 mmol/L (136-145)
[2019-08-15] MEDS: HumaLOG 300 UNITS/3 ML VIAL SC PRN ×2 (05:54→12:50)
[2019-08-15] MEDS: Furosemide 40 MG/4 ML VIAL SLOW IVP SCH (10:03)
[2019-08-15] MEDS: Glimepiride 4 MG TAB PO SCH ×2 (10:04→17:03)
[2019-08-15] MEDS: Aspirin 325 MG TAB PO SCH (10:04)
[2019-08-15] MEDS: Carvedilol 3.125 MG TAB PO SCH ×2 (10:04→17:03)
[2019-08-15] MEDS: Potassium Chloride 10 MEQ TAB PO SCH (10:04)
[2019-08-15] MEDS: Docusate 100 MG CAP PO SCH ×2 (10:04→20:04)
[2019-08-15] MEDS: Guaifenesin DM 100-10/5 ML UDCUP PO PRN (10:13)
--- NOTE | 2019-08-15 11:52 | RAD ---
CHEST 1 VIEW: INDICATION: History of effusion. COMPARISON: Prior exam dated August 14, 2019. FINDINGS: The moderate to large left-sided pleural effusion is stable appearing. Cardiomegaly with pulmonary v ascular congestion persists. Right IJ central venous catheter is stable-appearing. No pneumothorax is evident. IMPRESSION: Stable exam. POS: BH
--- NOTE | 2019-08-15 15:39 | PDOC.HOSPP ---
- Subjective Encounter Date: 08/15/19 Encounter Time: 14:00 Subjective: Patient seen and examined for CHF/CAD. No CP. No new complaints. No overnight events - Objective Vital Signs & Weight: Vital Signs (12 hours) Temp Pulse Resp BP Pulse Ox 08/15/19 12:55 98.5 F 87 16 122/61 98 08/15/19 08:05 98.8 F 106 H 18 142/66 H 97 08/15/19 07:08 100 14 08/15/19 03:43 98.4 F 98 18 146/68 H 96 Weight Weight 146 lb 14.4 oz Most Recent Monitor Data Heart Rate from ECG 103 NIBP 127/68 NIBP BP-Mean 87 Respiration from ECG 16 SpO2 100 I&O: 08/14/19 08/15/19 08/16/19 06:59 06:59 06:59 Intake Total 690 1250 240 Output Total 1000 2100 800 Balance -310 -850 -560 Result Diagrams: 08/14/19 04:05 08/15/19 03:56 Additional Labs: Accuchecks 08/15/19 08/15/19 08/14/19 11:26 05:32 20:13 POC Glucose 193 H 155 H 156 H 08/14/19 16:56 POC Glucose 127 H EKG Reviewed by me: Yes (Tele SR) Hospitalist ROS - Review of Systems Respiratory: denies: cough, dry, shortness of breath, hemoptysis, SOB with excertion, pleuritic pain, sputum, wheezing, other Cardiovascular: denies: chest pain, palpitations, orthopnea, paroxysmal noc. dyspnea, edema, light headedness, other Gastrointestinal: denies: nausea, vomiting, abdominal pain, diarrhea, constipation, melena, hematochezia, other - Medication Medications: Active Medications Generic Name Dose Route Start Last Admin Trade Name Freq PRN Reason Stop Dose Admin Albuterol/Ipratropium 3 ml 08/10/19 19:00 08/15/19 14:02 Duoneb NEB Not Given [id number] ADRIANA Aspirin 325 mg 08/11/19 09:00 08/15/19 10:04 Aspirin PO 325 mg DAILY ADRIANA Administration Atorvastatin Calcium 40 mg 08/11/19 21:00 08/14/19 20:31 Lipitor PO 40 mg HS ADRIANA Administration Carvedilol 3.125 mg 08/15/19 08:00 08/15/19 10:04 Coreg PO 3.125 mg BID-WM ADRIANA Administration Chlorphenir/Hydrocodone Polistirex 5 ml 08/13/19 10:46 08/14/19 12:52 Tussionex PO 5 ml Q12H PRN Administration Cough Docusate Sodium 100 mg 08/13/19 21:00 08/15/19 10:04 Colace PO 100 mg BID ADRIANA Administration Furosemide 40 mg 08/12/19 07:17 08/15/19 10:03 Lasix SLOW IVP 40 mg DAILY ADRIANA Administration Glimepiride 4 mg 08/13/19 08:00 08/15/19 10:04 Amaryl PO 4 mg BID-WM ADRIANA Administration Guaifenesin/Dextromethorphan 15 ml 08/12/19 07:18 08/15/19 10:13 Robitussin Dm PO 15 ml Q4H PRN Administration Cough Insulin Human Lispro 0 units 08/12/19 19:48 08/15/19 12:50 Humalog SC 2 unit .MODERATE SLIDING SC PRN Administration Moderate Correctional Scale Potassium Chloride 20 meq 08/10/19 17:48 08/10/19 18:47 Kcl IVPB 20 meq PRN PRN Administration K level </= 4.0 Potassium Chloride 10 meq 08/12/19 08:00 08/15/19 10:04 Klor-Con 10 PO 10 meq QAM-WM ADRIANA Administration Sodium Chloride 10 ml 08/11/19 07:42 08/13/19 06:07 Flush - Normal Saline IVF 10 ml PRN PRN Administration Saline Flush Sodium Chloride 10 ml 08/12/19 09:00 08/15/19 10:04 Flush - Normal Saline IVF 10 ml Q12HR ADRIANA Administration - Exam General Appearance: NAD Neck: supple, no JVD Heart: RRR, no gallops Respiratory: no wheezes, no ronchi Gastrointestinal: non-tender, normal bowel sounds Extremities: no cyanosis, no clubbing Neurological: no new deficit Hosp A/P - Plan DVT proph w/SCDs 1. [id number] systolic heart failure exacerbation. 2. NSTEMI 3. CAD s/p CABG 4. Hyperlipidemia. 5. Hypertension. 6. Diabetes mellitus, type 2. 7. Hypokalemia 8. CKD 3. 9. Abnormal LFTs probably secondary to passive hepatic congestion. 10. Left Pleural effusion 11. Pancytopenia 12. Obesity BMI 36. 13. Physical deconditioning PLAN: Cont ASA Cont Carvedilol MARIN inhibitor/Aldactone on hold due to hypotension. Cont moderate sliding scale Cont cardiac rehab LifeVest
[2019-08-15] MEDS: Atorvastatin Calcium 40 MG TAB PO SCH (20:04)
[2019-08-16] MEDS: Docusate 100 MG CAP PO SCH ×2 (07:54→21:08)
[2019-08-16] MEDS: Carvedilol 3.125 MG TAB PO SCH ×2 (07:54→16:45)
[2019-08-16] MEDS: Potassium Chloride 10 MEQ TAB PO SCH (07:54)
[2019-08-16] MEDS: Aspirin 325 MG TAB PO SCH (07:54)
[2019-08-16] MEDS: Glimepiride 4 MG TAB PO SCH ×2 (07:54→16:55)
[2019-08-16] MEDS: Furosemide 40 MG/4 ML VIAL SLOW IVP SCH (07:55)
[2019-08-16] MEDS: Lisinopril 2.5 MG TAB PO SCH (09:39)
[2019-08-16] MEDS: HumaLOG 300 UNITS/3 ML VIAL SC PRN (12:17)
[2019-08-16] MEDS: Atorvastatin Calcium 40 MG TAB PO SCH (21:08)
--- NOTE | 2019-08-17 02:50 | DIS ---
DATE OF ADMISSION: 08/08/2019 DATE OF DISCHARGE: 08/17/2019 DIAGNOSES: 1. Coronary artery disease. 2. Hypertension. 3. Dyslipidemia. 4. Congestive heart failure. 5. Diabetes mellitus. PROCEDURES: 1. Cardiac catheterization. 2. Coronary artery bypass grafting x3. a. Left internal mammary artery to left anterior descending. b. Saphenous vein graft to diagonal and OM. DESCRIPTION OF HOSPITAL STAY: Ms. Moncada was brought into the hospital with congestive heart failure. She was medically treated and underwent cardiac catheterization later in her hospital stay. She was taken to the operating room and underwent coronary artery bypass grafting as above on the . Postoperatively, she has been very slow to rehab. She has had no rhythm disturbances. At the time of discharge, she is ambulatory, tolerating regular diet, having good bowel and bladder function. Incisions were clean and dry without evidence of infection. DISCHARGE MEDICATIONS: Include: 1. Aspirin 325 mg daily. 2. Lasix 40 mg daily. 3. Amaryl 4 mg b.i.d. 4. Potassium 10 mEq daily. 5. Lipitor 40 mg at bedtime. 6. Coreg 3.125 mg b.i.d. 7. Zestril 2.5 mg daily. 8. Tramadol 50 mg 1-2 q.6 hours p.r.n. pain. FOLLOWUP: Follow up is with me in 2 weeks, Dr. Goodman in a month. Job ID: [id number]
[2019-08-17] MEDS: Furosemide 40 MG/4 ML VIAL SLOW IVP SCH (09:17)
[2019-08-17] MEDS: Potassium Chloride 10 MEQ TAB PO SCH (09:20)
[2019-08-17] MEDS: Carvedilol 3.125 MG TAB PO SCH ×2 (09:20→16:44)
[2019-08-17] MEDS: Aspirin 325 MG TAB PO SCH (09:20)
[2019-08-17] MEDS: Lisinopril 2.5 MG TAB PO SCH (09:20)
[2019-08-17] MEDS: Docusate 100 MG CAP PO SCH ×2 (09:20→20:53)
[2019-08-17] MEDS: Glimepiride 4 MG TAB PO SCH ×2 (09:20→16:44)
--- NOTE | 2019-08-17 09:35 | PDOC.HOSPP ---
- Subjective Encounter Date: 08/16/19 Encounter Time: 09:30 Subjective: Patient seen and examined for CP/CAD. No new complaints. No overnight events - Objective Vital Signs & Weight: Vital Signs (12 hours) Temp Pulse Resp BP BP Pulse Ox 08/17/19 07:19 102 H 16 08/17/19 07:08 98.6 F 102 H 16 109/56 L 94 L 08/17/19 03:20 98.5 F 103 H 18 109/57 L 95 08/17/19 00:00 95 08/16/19 23:27 16 96 Weight Weight 134 lb Most Recent Monitor Data Heart Rate from ECG 103 NIBP 127/68 NIBP BP-Mean 87 Respiration from ECG 16 SpO2 100 I&O: 08/16/19 08/17/19 08/18/19 06:59 06:59 06:59 Intake Total 730 770 Output Total 1700 200 Balance -970 570 Result Diagrams: 08/14/19 04:05 08/15/19 03:56 Additional Labs: Accuchecks 08/17/19 08/16/19 08/16/19 05:45 20:10 16:32 POC Glucose 100 169 H 129 H 08/16/19 10:28 POC Glucose 239 H EKG Reviewed by me: Yes (Tele SR) Hospitalist ROS - Review of Systems Respiratory: denies: cough, dry, shortness of breath, hemoptysis, SOB with excertion, pleuritic pain, sputum, wheezing, other Cardiovascular: denies: chest pain, palpitations, orthopnea, paroxysmal noc. dyspnea, edema, light headedness, other - Medication Medications: Active Medications Generic Name Dose Route Start Last Admin Trade Name Freq PRN Reason Stop Dose Admin Albuterol/Ipratropium 3 ml 08/10/19 19:00 08/17/19 07:19 Duoneb NEB 3 ml [id number] ADRIANA Administration Aspirin 325 mg 08/11/19 09:00 08/17/19 09:20 Aspirin PO 325 mg DAILY ADRIANA Administration Atorvastatin Calcium 40 mg 08/11/19 21:00 08/16/19 21:08 Lipitor PO 40 mg HS ADRIANA Administration Carvedilol 3.125 mg 08/15/19 08:00 08/17/19 09:20 Coreg PO 3.125 mg BID-WM ADRIANA Administration Chlorphenir/Hydrocodone Polistirex 5 ml 08/13/19 10:46 08/14/19 12:52 Tussionex PO 5 ml Q12H PRN Administration Cough Docusate Sodium 100 mg 08/13/19 21:00 08/17/19 09:20 Colace PO 100 mg BID ADRIANA Administration Glimepiride 4 mg 08/13/19 08:00 08/17/19 09:20 Amaryl PO 4 mg BID-WM ADRIANA Administration Guaifenesin/Dextromethorphan 15 ml 08/12/19 07:18 08/15/19 10:13 Robitussin Dm PO 15 ml Q4H PRN Administration Cough Insulin Human Lispro 0 units 08/12/19 19:48 08/16/19 12:17 Humalog SC 4 unit .MODERATE SLIDING SC PRN Administration Moderate Correctional Scale Lisinopril 2.5 mg 08/16/19 09:00 08/17/19 09:20 Zestril PO 2.5 mg DAILY ADRIANA Administration Potassium Chloride 20 meq 08/10/19 17:48 08/10/19 18:47 Kcl IVPB 20 meq PRN PRN Administration K level </= 4.0 Potassium Chloride 10 meq 08/12/19 08:00 08/17/19 09:20 Klor-Con 10 PO 10 meq QAM-WM ADRIANA Administration Sodium Chloride 10 ml 08/11/19 07:42 08/13/19 06:07 Flush - Normal Saline IVF 10 ml PRN PRN Administration Saline Flush Sodium Chloride 10 ml 08/12/19 09:00 08/17/19 09:21 Flush - Normal Saline IVF 10 ml Q12HR ADRIANA Administration - Exam General Appearance: NAD Neck: supple, no JVD Heart: RRR, no gallops Respiratory: no wheezes, no ronchi Gastrointestinal: soft, non-tender, normal bowel sounds Extremities: no cyanosis Neurological: no new deficit Hosp A/P - Plan DVT proph w/SCDs 1. Yefok-ks-[id number] systolic heart failure exacerbation. 2. NSTEMI 3. CAD s/p CABG 4. Hyperlipidemia. 5. Hypertension. 6. Diabetes mellitus, type 2. 7. Hypokalemia 8. CKD 3. 9. Abnormal LFTs probably secondary to passive hepatic congestion. 10. Left Pleural effusion 11. Pancytopenia 12. Obesity BMI 36. 13. Physical deconditioning PLAN: Cont ASA with low dose Coreg ACEI started Cont moderate sliding scale Cont cardiac rehab LifeVest at dc
--- NOTE | 2019-08-17 09:40 | PDOC.HOSPP ---
- Objective Vital Signs & Weight: Vital Signs (12 hours) Temp Pulse Resp BP BP Pulse Ox 08/17/19 07:19 102 H 16 08/17/19 07:08 98.6 F 102 H 16 109/56 L 94 L 08/17/19 03:20 98.5 F 103 H 18 109/57 L 95 08/17/19 00:00 95 08/16/19 23:27 16 96 Weight Weight 134 lb Most Recent Monitor Data Heart Rate from ECG 103 NIBP 127/68 NIBP BP-Mean 87 Respiration from ECG 16 SpO2 100 I&O: 08/16/19 08/17/19 08/18/19 06:59 06:59 06:59 Intake Total 730 770 Output Total 1700 200 Balance -970 570 Result Diagrams: 08/14/19 04:05 08/15/19 03:56 Additional Labs: Accuchecks 08/17/19 08/16/19 08/16/19 05:45 20:10 16:32 POC Glucose 100 169 H 129 H 08/16/19 10:28 POC Glucose 239 H Hospitalist ROS - Medication Medications: Active Medications Generic Name Dose Route Start Last Admin Trade Name Freq PRN Reason Stop Dose Admin Albuterol/Ipratropium 3 ml 08/10/19 19:00 08/17/19 07:19 Duoneb NEB 3 ml [id number] ADRIANA Administration Aspirin 325 mg 08/11/19 09:00 08/17/19 09:20 Aspirin PO 325 mg DAILY ADRIANA Administration Atorvastatin Calcium 40 mg 08/11/19 21:00 08/16/19 21:08 Lipitor PO 40 mg HS ADRIANA Administration Carvedilol 3.125 mg 08/15/19 08:00 08/17/19 09:20 Coreg PO 3.125 mg BID-WM ADRIANA Administration Chlorphenir/Hydrocodone Polistirex 5 ml 08/13/19 10:46 08/14/19 12:52 Tussionex PO 5 ml Q12H PRN Administration Cough Docusate Sodium 100 mg 08/13/19 21:00 08/17/19 09:20 Colace PO 100 mg BID ADRIANA Administration Glimepiride 4 mg 08/13/19 08:00 08/17/19 09:20 Amaryl PO 4 mg BID-WM ADRIANA Administration Guaifenesin/Dextromethorphan 15 ml 08/12/19 07:18 08/15/19 10:13 Robitussin Dm PO 15 ml Q4H PRN Administration Cough Insulin Human Lispro 0 units 08/12/19 19:48 08/16/19 12:17 Humalog SC 4 unit .MODERATE SLIDING SC PRN Administration Moderate Correctional Scale Lisinopril 2.5 mg 08/16/19 09:00 08/17/19 09:20 Zestril PO 2.5 mg DAILY ADRIANA Administration Potassium Chloride 20 meq 08/10/19 17:48 08/10/19 18:47 Kcl IVPB 20 meq PRN PRN Administration K level </= 4.0 Potassium Chloride 10 meq 08/12/19 08:00 08/17/19 09:20 Klor-Con 10 PO 10 meq QAM-WM ADRIANA Administration Sodium Chloride 10 ml 08/11/19 07:42 08/13/19 06:07 Flush - Normal Saline IVF 10 ml PRN PRN Administration Saline Flush Sodium Chloride 10 ml 08/12/19 09:00 08/17/19 09:21 Flush - Normal Saline IVF 10 ml Q12HR ADRIANA Administration Hosp A/P - Plan 1. Ukkfz-[id number]-[id number] systolic heart failure exacerbation. 2. NSTEMI 3. CAD s/p CABG 4. Hyperlipidemia. 5. Hypertension. 6. Diabetes mellitus, type 2. 7. Hypokalemia 8. CKD 3. 9. Abnormal LFTs probably secondary to passive hepatic congestion. 10. Left Pleural effusion 11. Pancytopenia 12. Obesity BMI 36. 13. Physical deconditioning PLAN: Cont ASA Cont low dose Coreg Cont low dose Lisinopril Change Lasix to PO Cont sliding scale and other meds as above Cont cardiac rehab LifeVest education
[2019-08-17] MEDS: HumaLOG 300 UNITS/3 ML VIAL SC PRN (16:49)
[2019-08-17] MEDS: Atorvastatin Calcium 40 MG TAB PO SCH (20:53)
[2019-08-17 22:36] VITALS: BP 97/55; TEMP 98.2
--- NOTE | 2019-08-18 06:38 | DIS ---
DATE OF ADMISSION: 08/08/2019 DATE OF DISCHARGE: 08/17/2019 DISCHARGE DISPOSITION: Inpatient rehabilitation. FOLLOWUP: 1. Followup with [facility] in 1 week. 2. Follow up with Cardiology, Dr. Artis Goodman and Cardiovascular, Dr. Garcia Paige as scheduled. ALLERGIES: NO KNOWN DRUG ALLERGIES. THE PATIENT WAS SEEN AND EXAMINED ON THE DAY OF DISCHARGE. DENIES ANY NEW COMPLAINTS. VITAL SIGNS SHOWED TEMPERATURE 98.7 WITH PULSE RATE OF 88, RESPIRATIONS OF 16 WITH O2 SATURATION 98% ON ROOM AIR WITH BLOOD PRESSURE OF 108/58. MEDICATIONS: 1. Carvedilol 3.125 mg b.i.d. 2. Aspirin 325 mg daily. 3. Glimepiride 4 mg b.i.d. 4. Lipitor 40 mg at bedtime. 5. Lasix 40 mg daily. 6. Lisinopril 2.5 mg daily. 7. Potassium chloride 10 mEq daily. 8. Tramadol as needed. BRIEF HOSPITAL COURSE: The patient is a 64-year-old female with hypertension, hyperlipidemia, and diabetes mellitus type 2, presented to the hospital on 08 August 2019 with chest discomfort. Her workup was consistent with congestive heart failure exacerbation with ejection fraction of 20% to 25%. Cardiac catheterization performed by Dr. Goodman showed left main and 3-vessel coronary artery disease. The patient underwent coronary artery bypass grafting on July,. She was monitored in the intensive care unit. Currently, she is on the telemetry floor and doing well. LifeVest has been arranged. Due to physical deconditioning, the patient will be discharged to inpatient rehabilitation. FINAL DIAGNOSES: 1. Acute on chronic systolic heart failure exacerbation. 2. [id number]-nuqykaepm myocardial infarction. 3. Coronary artery disease, status post coronary artery bypass grafting. 4. Hyperlipidemia. 5. Hypertension. 6. Diabetes mellitus type 2. 7. Hypokalemia. 8. Chronic kidney disease, stage 3. 9. Left-sided pleural effusion. 10. Abnormal LFTs probably secondary to passive hepatic congestion. 11. Pancytopenia. 12. Obesity with a BMI of 36. 13. Physical deconditioning. TIME SPENT: Time coordinating the discharge of this patient was 37 minutes. Job ID: [id number]
[2019-08-18] MEDS ORDERED: Furosemide 40 MG TAB PO SCH (07:30)
== END 2019-08-17 21:38 | DRG 233 ==
LOC: ERS 00:11 → 2NO 04:30 → CCU 08-10 09:54 → 2NO 08-12 10:42
PROVIDERS: ADMIT Internal Medicine; ATTEND Internal Medicine
PROC: 02100Z9 Bypass Coronary Artery, One Artery from Left Internal Mammary, Open Approach (ICD-10-PCS; principal; 2019-08-10)
PROC: 4A023N7 Measurement of Cardiac Sampling and Pressure, Left Heart, Percutaneous Approach (ICD-10-PCS; 2019-08-10)
PROC: 021109W Bypass Coronary Artery, Two Arteries from Aorta with Autologous Venous Tissue, Open Approach (ICD-10-PCS; 2019-08-10)
PROC: 06BQ4ZZ Excision of Left Saphenous Vein, Percutaneous Endoscopic Approach (ICD-10-PCS; 2019-08-10)
PROC: 5A1221Z Performance of Cardiac Output, Continuous (ICD-10-PCS; 2019-08-10)
PROC: B2151ZZ Fluoroscopy of Left Heart using Low Osmolar Contrast (ICD-10-PCS; 2019-08-10)
PROC: B2111ZZ Fluoroscopy of Multiple Coronary Arteries using Low Osmolar Contrast (ICD-10-PCS; 2019-08-10)
DX: I13.0 Hypertensive heart and chronic kidney disease with heart failure and stage 1 through stage 4 chronic kidney disease, or unspecified chronic kidney disease (principal); I21.4 Non-ST elevation (NSTEMI) myocardial infarction; I50.23 Acute on chronic systolic (congestive) heart failure; D61.818 Other pancytopenia; I25.5 Ischemic cardiomyopathy; E78.5 Hyperlipidemia, unspecified; N18.3 Chronic kidney disease, stage 3 (moderate); I25.10 Atherosclerotic heart disease of native coronary artery without angina pectoris; E78.00 Pure hypercholesterolemia, unspecified; I34.0 Nonrheumatic mitral (valve) insufficiency; K76.1 Chronic passive congestion of liver; E11.22 Type 2 diabetes mellitus with diabetic chronic kidney disease; E66.9 Obesity, unspecified; E87.6 Hypokalemia; Z68.36 Body mass index [BMI] 36.0-36.9, adult; Z90.49 Acquired absence of other specified parts of digestive tract; Z79.899 Other long term (current) drug therapy
CPT/HCPCS: 36415; 36416; 36430; 71045; 71275; 80048; 80053; 80061; 82550; 82553; 82805; 83036; 83735; 83880; 84443; 84484; 85025; 85379; 85610; 85730; 86850; 86900; 86901; 93005; 93010; 93458; 93798; 94002; 94640; 94760; 96374; 99152; 99153; J0171; J0690; J1100; J1644; J1650; J1815; J1885; J1940; J2001; J2250; J2260; J2440; J2704; J2720; J3010; J3370; J3475; J3480; J3490; J7620; P9045; Q9967; S0017; S0020; S0028

== ENCOUNTER 2019-08-30 12:32 | Emergency (ER) | payer MEDICARE, OTHER ==
[2019-08-30 13:15] LABS: #Eosinphils 0.2 thou/uL (0.0-0.7); #Lymphocytes 0.7 thou/uL (1.20-3.40); #Monocytes 0.2 thou/uL (0.11-0.59); #Neutrophils 2.1 thou/uL (1.40-6.50); %Basophils 0.5 % (0.0-1.0); %Eosinophils 6.6 % (0.0-10.0); %Lymphocytes 20.9 % (21.0-51.0); %Monocytes 6.2 % (0.0-10.0); %Neutrophils 65.8 % (42.0-75.0); Hemoglobin 10.2 g/dL (12.0-16.0); Mean Corpuscular HGB CONC 32.4 g/dL (32.0-36.0); Mean Corpuscular Hemoglobin 28.2 pg (27.0-31.0); Mean Platelet Volume 8.7 fL (7.4-10.4); Platelet Count 231 thou/uL (130-400); RBC Distribution Width 14.3 % (11.5-14.5); Red Blood Cell (RBC) Count 3.63 mill/uL (4.20-5.40); White Blood Cell (WBC) Count 3.2 thou/uL (4.8-10.8)
[2019-08-30 13:35] LABS: ALT (SGPT) 18 U/L (8-55); AST (SGOT) 26 U/L (5-34); Albumin 3.4 g/dL (3.4-4.8); Alkaline Phosphatase 89 U/L (40-110); Anion Gap 11 mmol/L (10-20); BUN (Urea Nitrogen) 27 mg/dL (9.8-20.1); Bilirubin, Total 0.3 mg/dL (0.2-1.2); Calc. Creatinine Clearance 0 mL/min (70-130); Calcium 8.5 mg/dL (7.8-10.44); Carbon Dioxide 26 mmol/L (23-31); Chloride 103 mmol/L (98-107); Estimated GFR-MDRD 34; Globulin 2.5 g/dL (2.4-3.5); Glucose 184 mg/dL (80-115); Potassium 5.1 mmol/L (3.5-5.1); Protein, Total 5.9 g/dL (6.0-8.3); Sodium 135 mmol/L (136-145)
--- NOTE | 2019-08-30 14:15 | RAD ---
EXAM: CHEST ONE VIEW HISTORY: Weakness. Hypotension. History of recent CABG. COMPARISON: 08/15/2019 FINDINGS: Right-sided vascular catheter has been removed. Postoperative changes related to median sternotomy ar e again seen. The cardiac silhouette is enlarged. There is improvement in the pleural and parenchymal densities at the left lung base which likely represents interval improvement in left pleu ral effusion and atelectasis superimposed on mild elevation left hemidiaphragm. The right lung is clear. Pulmonary vasculature is within normal limits . No other interval change. IMPRESSION: 1. Improvement in aeration at the left lung base likely related to improvement in left pleural effusi on and atelectasis. Superimposed infiltrate left lung base cannot be entirely excluded. Follow-up to resolution is suggested. 2. Cardiomegaly without overt CHF.
== END 2019-08-30 15:02 | disposition home or self-care (01) ==
LOC: ERS 12:32
DX: I11.0 Hypertensive heart disease with heart failure (principal); I50.9 Heart failure, unspecified; R53.1 Weakness; R42 Dizziness and giddiness; E78.5 Hyperlipidemia, unspecified; E78.00 Pure hypercholesterolemia, unspecified; E11.9 Type 2 diabetes mellitus without complications; Z79.899 Other long term (current) drug therapy
CPT/HCPCS: 36415; 71045; 80053; 83605; 83880; 84484; 85025; 93005

== ENCOUNTER 2021-08-12 18:26 | Emergency (ER) | payer MEDICARE, MEDICAID ==
[2021-08-12] MEDS ORDERED: Acetaminophen 500 MG TAB ONE (18:53)
[2021-08-12] MEDS ORDERED: Ibuprofen 200 MG TAB ONE (19:56)
[2021-08-12 21:10] LABS: SARS-CoV-2 NAA Rapid Test DETECTED (NotDetected)
== END 2021-08-12 21:20 | disposition home or self-care (01) ==
LOC: ERS 18:26
DX: U07.1 COVID-19 (principal); E11.9 Type 2 diabetes mellitus without complications; I10 Essential (primary) hypertension; E78.5 Hyperlipidemia, unspecified; E78.00 Pure hypercholesterolemia, unspecified; I25.10 Atherosclerotic heart disease of native coronary artery without angina pectoris; Z79.84 Long term (current) use of oral hypoglycemic drugs; Z79.899 Other long term (current) drug therapy
CPT/HCPCS: 0240U; 71045; 99284

== ENCOUNTER 2021-08-30 13:16 | Emergency (ER) | payer MEDICARE, MEDICAID ==
[2021-08-30] MEDS ORDERED: Ketorolac Tromethamine 30 MG/ML VIAL ONE (14:17)
== END 2021-08-30 14:50 | disposition home or self-care (01) ==
LOC: ERS 13:16
DX: M54.32 Sciatica, left side (principal); E11.9 Type 2 diabetes mellitus without complications; I10 Essential (primary) hypertension; E78.00 Pure hypercholesterolemia, unspecified; I25.10 Atherosclerotic heart disease of native coronary artery without angina pectoris; Z79.899 Other long term (current) drug therapy
CPT/HCPCS: 96372; 99283; J1885

== ENCOUNTER 2021-09-09 13:23 | Inpatient (IN) | payer MEDICARE, MEDICAID ==
[2021-09-09 16:23] LABS: #Lymphocytes 0.8 thou/uL (1.20-3.40); #Monocytes 0.3 thou/uL (0.11-0.59); #Neutrophils 4.1 thou/uL (1.40-6.50); %Basophils 0.3 % (0.0-1.0); %Eosinophils 0.8 % (0.0-10.0); %Lymphocytes 15.2 % (21.0-51.0); %Monocytes 5.5 % (0.0-10.0); %Neutrophils 78.2 % (42.0-75.0); Hemoglobin 11.5 g/dL (12.0-16.0); Mean Corpuscular HGB CONC 30.6 g/dL (32.0-36.0); Mean Corpuscular Hemoglobin 27.4 pg (27.0-31.0); Mean Corpuscular Volume 89.5 fL (78.0-98.0); Mean Platelet Volume 8.2 fL (7.4-10.4); Platelet Count 245 thou/uL (130-400); RBC Distribution Width 13.9 % (11.5-14.5); Red Blood Cell (RBC) Count 4.21 mill/uL (4.20-5.40); White Blood Cell (WBC) Count 5.2 thou/uL (4.8-10.8)
[2021-09-09] MEDS ORDERED: Acetaminophen 500 MG TAB ONE (16:40)
[2021-09-09 16:47] LABS: ALT (SGPT) 9 U/L (8-55); AST (SGOT) 15 U/L (5-34); Albumin 3.9 g/dL (3.4-4.8); Alkaline Phosphatase 87 U/L (40-110); Anion Gap 17 mmol/L (10-20); BUN (Urea Nitrogen) 19 mg/dL (9.8-20.1); Bilirubin, Total 0.5 mg/dL (0.2-1.2); Calc. Creatinine Clearance 0 mL/min (70-130); Calcium 9.6 mg/dL (7.8-10.44); Carbon Dioxide 22 mmol/L (23-31); Chloride 104 mmol/L (98-107); Estimated GFR 77; Globulin 3.7 g/dL (2.4-3.5); Glucose 115 mg/dL (80-115); Potassium 4.2 mmol/L (3.5-5.1); Protein, Total 7.6 g/dL (5.8-8.1); Sodium 139 mmol/L (136-145)
[2021-09-09] MEDS ORDERED: Vancomycin 1.5 GRAM/300 ML BAG 1.5 GM in Premix Bag 1 BAG IVPB SCH (18:30)
[2021-09-09] MEDS ORDERED: Piperacillin/Tazobactam 3.375 GM VIAL ONE (18:59)
[2021-09-09] MEDS ORDERED: HumaLOG 300 UNITS/3 ML VIAL SC PRN ×2 (19:44)
[2021-09-09] MEDS ORDERED: Dextrose 5% in Water 1,000 ML IV PRN (19:44)
[2021-09-09] MEDS ORDERED: Dextrose 50% Abboject 50 ML SYRINGE SLOW IVP PRN (19:44)
[2021-09-09] MEDS ORDERED: Labetalol HCl 100 MG/20 ML VIAL SLOW IVP PRN (20:41)
[2021-09-09] MEDS ORDERED: Carvedilol 6.25 MG TAB PO SCH ×2 (20:42→21:00)
[2021-09-09 20:56] LABS: Hemoglobin A1c 10.6 % (4.0-6.0)
[2021-09-09] MEDS: Atorvastatin Calcium 40 MG TAB PO SCH (21:24)
[2021-09-09] MEDS ORDERED: Insulin Glargine 30 UNITS/0.3 ML VIAL SC SCH (22:00)
[2021-09-09] MEDS: Acetaminophen 325 MG TAB PO PRN (22:02)
[2021-09-09 22:13] LABS: SARS-CoV-2 NAA Rapid Test Not Detected (NotDetected)
[2021-09-09] MEDS: Ampicillin/Sulbactam 1.5 GM in Sodium Chloride 0.9% 100 ML IVPB SCH (23:33)
[2021-09-09] MEDS ORDERED: Ketorolac Tromethamine 10 MG TAB PO SCH (23:51)
[2021-09-10] MEDS: Ampicillin/Sulbactam 1.5 GM in Sodium Chloride 0.9% 100 ML IVPB SCH ×2 (05:15→11:33)
[2021-09-10 05:34] LABS: #Eosinphils 0.1 thou/uL (0.0-0.7); #Lymphocytes 0.8 thou/uL (1.20-3.40); #Monocytes 0.3 thou/uL (0.11-0.59); #Neutrophils 2.7 thou/uL (1.40-6.50); %Basophils 0.3 % (0.0-1.0); %Eosinophils 2.1 % (0.0-10.0); %Lymphocytes 21.5 % (21.0-51.0); %Monocytes 6.8 % (0.0-10.0); %Neutrophils 69.3 % (42.0-75.0); Hemoglobin 9.8 g/dL (12.0-16.0); Mean Corpuscular HGB CONC 31.1 g/dL (32.0-36.0); Mean Corpuscular Hemoglobin 27.6 pg (27.0-31.0); Mean Corpuscular Volume 88.8 fL (78.0-98.0); Mean Platelet Volume 8.6 fL (7.4-10.4); Platelet Count 199 thou/uL (130-400); Red Blood Cell (RBC) Count 3.54 mill/uL (4.20-5.40); White Blood Cell (WBC) Count 3.9 thou/uL (4.8-10.8)
[2021-09-10 05:57] LABS: ALT (SGPT) 8 U/L (8-55); AST (SGOT) 13 U/L (5-34); Alkaline Phosphatase 78 U/L (40-110); Anion Gap 13 mmol/L (10-20); BUN (Urea Nitrogen) 17 mg/dL (9.8-20.1); Bilirubin, Total 0.3 mg/dL (0.2-1.2); Calc. Creatinine Clearance 66 mL/min (70-130); Calcium 8.6 mg/dL (7.8-10.44); Carbon Dioxide 22 mmol/L (23-31); Chloride 109 mmol/L (98-107); Estimated GFR 87; Glucose 160 mg/dL (80-115); Potassium 3.9 mmol/L (3.5-5.1); Sodium 140 mmol/L (136-145)
[2021-09-10] MEDS: Amlodipine 10 MG TAB PO SCH (07:45)
[2021-09-10] MEDS: Furosemide 40 MG TAB PO SCH (07:45)
[2021-09-10] MEDS: Insulin Glargine 30 UNITS/0.3 ML VIAL SC SCH ×2 (07:45→20:21)
[2021-09-10] MEDS ORDERED: Carvedilol 6.25 MG TAB PO SCH (08:00)
[2021-09-10] MEDS ORDERED: Empagliflozin 25 MG TAB PO SCH (09:00)
[2021-09-10] MEDS ORDERED: Insulin Glargine 30 UNITS/0.3 ML VIAL SC SCH (09:00)
[2021-09-10] MEDS ORDERED: Glimepiride 4 MG TAB PO SCH (09:00)
[2021-09-10] MEDS: Carvedilol 6.25 MG TAB PO SCH ×2 (09:09→17:40)
[2021-09-10] MEDS: Ketorolac Tromethamine 30 MG/ML VIAL IVP PRN ×2 (14:28→23:38)
[2021-09-10] MEDS: Acetaminophen 325 MG TAB PO PRN ×2 (14:28→20:28)
[2021-09-10] MEDS: Ampicillin/Sulbactam 3 GM in Sodium Chloride 0.9% 100 ML IVPB SCH ×2 (17:40→23:29)
[2021-09-10] MEDS: Atorvastatin Calcium 40 MG TAB PO SCH (20:21)
[2021-09-10] MEDS: VANCOMYCIN 1.25 GM/250 ML BAG 1.25 GM in Premix Bag 1 BAG IVPB SCH (20:22)
[2021-09-11] MEDS: Ampicillin/Sulbactam 3 GM in Sodium Chloride 0.9% 100 ML IVPB SCH ×3 (06:22→17:43)
[2021-09-11] MEDS ORDERED: Lactated Ringer's 1,000 ML IV SCH (08:00)
[2021-09-11] MEDS: Carvedilol 6.25 MG TAB PO SCH ×2 (08:41→17:43)
[2021-09-11] MEDS: Ketorolac Tromethamine 30 MG/ML VIAL IVP PRN (08:42)
[2021-09-11] MEDS: Enoxaparin Sodium 40 MG/0.4 ML SYRINGE SC SCH (08:42)
[2021-09-11] MEDS: Amlodipine 10 MG TAB PO SCH (08:42)
[2021-09-11] MEDS: Acetaminophen 325 MG TAB PO PRN ×2 (08:42→21:39)
[2021-09-11] MEDS: Furosemide 40 MG TAB PO SCH (08:43)
[2021-09-11] MEDS: Insulin Glargine 30 UNITS/0.3 ML VIAL SC SCH ×2 (08:43→21:41)
[2021-09-11] MEDS ORDERED: Morphine 4 MG/ML VIAL ONE (09:29)
[2021-09-11] MEDS ORDERED: Morphine 4 MG/ML VIAL SLOW IVP SCH (10:45)
[2021-09-11] MEDS: traMADol HCl 50 MG TAB PO PRN ×2 (11:34→21:38)
[2021-09-11 12:10] VITALS: BMI 25.9
[2021-09-11] MEDS: Ondansetron ODT 4 MG TAB PO PRN (13:40)
[2021-09-11 20:17] LABS: Vancomycin, Trough 9.5 ug/mL
[2021-09-11] MEDS: Atorvastatin Calcium 40 MG TAB PO SCH (21:37)
[2021-09-11] MEDS: Vancomycin HCl 750 MG in Sodium Chloride 0.9% 250 ML 250 ML IVPB SCH (21:39)
[2021-09-11] MEDS: VANCOMYCIN 1.25 GM/250 ML BAG 1.25 GM in Premix Bag 1 BAG IVPB SCH (21:53)
[2021-09-12] MEDS: Ampicillin/Sulbactam 3 GM in Sodium Chloride 0.9% 100 ML IVPB SCH ×5 (00:26→23:21)
[2021-09-12] MEDS: Acetaminophen 325 MG TAB PO PRN ×3 (05:15→23:21)
[2021-09-12] MEDS: traMADol HCl 50 MG TAB PO PRN ×2 (05:15→11:20)
[2021-09-12 08:08] LABS: #Eosinphils 0.1 thou/uL (0.0-0.7); #Lymphocytes 0.9 thou/uL (1.20-3.40); #Monocytes 0.2 thou/uL (0.11-0.59); #Neutrophils 2.7 thou/uL (1.40-6.50); %Basophils 0.8 % (0.0-1.0); %Eosinophils 3.7 % (0.0-10.0); %Lymphocytes 22.7 % (21.0-51.0); %Monocytes 6.1 % (0.0-10.0); %Neutrophils 66.8 % (42.0-75.0); Mean Corpuscular Hemoglobin 28.1 pg (27.0-31.0); Mean Corpuscular Volume 87.9 fL (78.0-98.0); Mean Platelet Volume 8.9 fL (7.4-10.4); Platelet Count 211 thou/uL (130-400); RBC Distribution Width 13.9 % (11.5-14.5); Red Blood Cell (RBC) Count 3.54 mill/uL (4.20-5.40)
[2021-09-12 08:28] LABS: ALT (SGPT) 9 U/L (8-55); AST (SGOT) 14 U/L (5-34); Albumin 2.9 g/dL (3.4-4.8); Alkaline Phosphatase 70 U/L (40-110); Anion Gap 13 mmol/L (10-20); BUN (Urea Nitrogen) 13 mg/dL (9.8-20.1); Bilirubin, Total 0.2 mg/dL (0.2-1.2); Calc. Creatinine Clearance 63 mL/min (70-130); Calcium 8.7 mg/dL (7.8-10.44); Carbon Dioxide 25 mmol/L (23-31); Chloride 106 mmol/L (98-107); Estimated GFR 83; Globulin 2.9 g/dL (2.4-3.5); Glucose 168 mg/dL (80-115); Potassium 4.1 mmol/L (3.5-5.1); Protein, Total 5.8 g/dL (5.8-8.1); Sodium 140 mmol/L (136-145)
[2021-09-12] MEDS: Carvedilol 6.25 MG TAB PO SCH ×2 (09:26→18:29)
[2021-09-12] MEDS: Insulin Glargine 30 UNITS/0.3 ML VIAL SC SCH ×2 (09:26→21:10)
[2021-09-12] MEDS: Enoxaparin Sodium 40 MG/0.4 ML SYRINGE SC SCH (09:26)
[2021-09-12] MEDS: Amlodipine 10 MG TAB PO SCH (09:26)
[2021-09-12] MEDS: Furosemide 40 MG TAB PO SCH (09:26)
[2021-09-12] MEDS: Vancomycin HCl 750 MG in Sodium Chloride 0.9% 250 ML 250 ML IVPB SCH ×2 (10:47→21:10)
[2021-09-12] MEDS: Ketorolac Tromethamine 30 MG/ML VIAL IVP PRN (12:40)
[2021-09-12] MEDS: Atorvastatin Calcium 40 MG TAB PO SCH (21:10)
[2021-09-13] MEDS: traMADol HCl 50 MG TAB PO PRN ×4 (01:59→18:40)
[2021-09-13] MEDS: Ketorolac Tromethamine 30 MG/ML VIAL IVP PRN ×2 (05:38→20:52)
[2021-09-13] MEDS: Ampicillin/Sulbactam 3 GM in Sodium Chloride 0.9% 100 ML IVPB SCH ×4 (05:43→23:16)
[2021-09-13 08:37] LABS: #Eosinphils 0.1 thou/uL (0.0-0.7); #Lymphocytes 0.8 thou/uL (1.20-3.40); #Monocytes 0.3 thou/uL (0.11-0.59); #Neutrophils 4.1 thou/uL (1.40-6.50); %Eosinophils 2.5 % (0.0-10.0); %Lymphocytes 15.4 % (21.0-51.0); %Monocytes 5.1 % (0.0-10.0); Hemoglobin 10.2 g/dL (12.0-16.0); Mean Corpuscular HGB CONC 31.8 g/dL (32.0-36.0); Mean Corpuscular Hemoglobin 27.8 pg (27.0-31.0); Mean Corpuscular Volume 87.4 fL (78.0-98.0); Mean Platelet Volume 9.2 fL (7.4-10.4); Platelet Count 223 thou/uL (130-400); RBC Distribution Width 14.1 % (11.5-14.5); Red Blood Cell (RBC) Count 3.67 mill/uL (4.20-5.40); White Blood Cell (WBC) Count 5.4 thou/uL (4.8-10.8)
[2021-09-13 08:46] LABS: Vancomycin, Trough 17.7 ug/mL
[2021-09-13 08:49] LABS: ALT (SGPT) 11 U/L (8-55); AST (SGOT) 16 U/L (5-34); Albumin 3.2 g/dL (3.4-4.8); Alkaline Phosphatase 71 U/L (40-110); Anion Gap 16 mmol/L (10-20); BUN (Urea Nitrogen) 17 mg/dL (9.8-20.1); Bilirubin, Total 0.3 mg/dL (0.2-1.2); Calc. Creatinine Clearance 60 mL/min (70-130); Carbon Dioxide 25 mmol/L (23-31); Chloride 100 mmol/L (98-107); Estimated GFR 77; Globulin 3.1 g/dL (2.4-3.5); Glucose 177 mg/dL (80-115); Potassium 3.8 mmol/L (3.5-5.1); Protein, Total 6.3 g/dL (5.8-8.1); Sodium 137 mmol/L (136-145)
[2021-09-13] MEDS: Enoxaparin Sodium 40 MG/0.4 ML SYRINGE SC SCH (09:37)
[2021-09-13] MEDS: Amlodipine 10 MG TAB PO SCH (09:38)
[2021-09-13] MEDS: Carvedilol 6.25 MG TAB PO SCH ×2 (09:38→18:40)
[2021-09-13] MEDS: Losartan 25 MG TAB PO SCH (09:38)
[2021-09-13] MEDS: Insulin Glargine 30 UNITS/0.3 ML VIAL SC SCH ×2 (09:38→20:54)
[2021-09-13] MEDS: Furosemide 40 MG TAB PO SCH (09:38)
[2021-09-13] MEDS: Acetaminophen 325 MG TAB PO PRN ×4 (09:39→23:20)
[2021-09-13] MEDS: Vancomycin HCl 750 MG in Sodium Chloride 0.9% 250 ML 250 ML IVPB SCH ×2 (09:39→20:53)
[2021-09-13] MEDS: Ondansetron ODT 4 MG TAB PO PRN (18:54)
[2021-09-13] MEDS: Atorvastatin Calcium 40 MG TAB PO SCH (20:53)
[2021-09-14] MEDS: Ampicillin/Sulbactam 3 GM in Sodium Chloride 0.9% 100 ML IVPB SCH (04:50)
[2021-09-14] MEDS: traMADol HCl 50 MG TAB PO PRN (04:50)
[2021-09-14] MEDS ORDERED: Ciprofloxacin 500 MG TAB PO SCH (09:00)
[2021-09-14] MEDS ORDERED: Amoxicillin/Potassium Clav 875 MG TAB PO SCH (09:00)
[2021-09-14] MEDS: Enoxaparin Sodium 40 MG/0.4 ML SYRINGE SC SCH (10:11)
[2021-09-14] MEDS: Carvedilol 6.25 MG TAB PO SCH (10:12)
[2021-09-14] MEDS: Amlodipine 10 MG TAB PO SCH (10:12)
[2021-09-14] MEDS: Losartan 25 MG TAB PO SCH (10:12)
[2021-09-14] MEDS: Insulin Glargine 30 UNITS/0.3 ML VIAL SC SCH (10:12)
[2021-09-14] MEDS: Furosemide 40 MG TAB PO SCH (10:12)
[2021-09-14 11:38] VITALS: BP 149/76; TEMP 98.4
== END 2021-09-14 13:30 | disposition home or self-care (01) | DRG 638 ==
LOC: ERS 13:23 → SURG A 18:18
PROVIDERS: ADMIT Family Medicine; ATTEND Student in an Organized Health Care Education/Training Program
PROC: 0HBNXZZ Excision of Left Foot Skin, External Approach (ICD-10-PCS; principal; 2021-09-10)
DX: E11.69 Type 2 diabetes mellitus with other specified complication (principal); L97.429 Non-pressure chronic ulcer of left heel and midfoot with unspecified severity; M86.672 Other chronic osteomyelitis, left ankle and foot; E11.621 Type 2 diabetes mellitus with foot ulcer; Z20.822 Contact with and (suspected) exposure to COVID-19; E11.65 Type 2 diabetes mellitus with hyperglycemia; I10 Essential (primary) hypertension; L97.519 Non-pressure chronic ulcer of other part of right foot with unspecified severity; I25.10 Atherosclerotic heart disease of native coronary artery without angina pectoris; E11.51 Type 2 diabetes mellitus with diabetic peripheral angiopathy without gangrene; B96.89 Other specified bacterial agents as the cause of diseases classified elsewhere; B95.1 Streptococcus, group B, as the cause of diseases classified elsewhere; E78.00 Pure hypercholesterolemia, unspecified; I25.5 Ischemic cardiomyopathy; B35.4 Tinea corporis; Z90.89 Acquired absence of other organs; Z95.1 Presence of aortocoronary bypass graft; Z79.899 Other long term (current) drug therapy; Z79.84 Long term (current) use of oral hypoglycemic drugs; Z79.4 Long term (current) use of insulin; Z83.3 Family history of diabetes mellitus; Z90.49 Acquired absence of other specified parts of digestive tract
CPT/HCPCS: 36415; 36416; 80053; 80202; 83036; 83605; 85025; 85652; 86140; 87040; 87070; 87077; 87186; 87205; 96361; 96374; 97139; J0295; J1650; J1815; J1885; J2270; J2543; J3370; J3490; J7050; J7120; Q0162; U0002

== ENCOUNTER 2022-12-31 10:25 | Outpatient (CLI) | payer MEDICARE, OTHER | END 2022-12-31 10:26 | disposition home or self-care (01) | LOC: BICMAMMO 10:25 | PROVIDERS: ATTEND Student in an Organized Health Care Education/Training Program | DX: Z12.31 Encounter for screening mammogram for malignant neoplasm of breast (principal); E55.9 Vitamin D deficiency, unspecified | CPT/HCPCS: 77063; 77067 ==

== ENCOUNTER 2023-02-09 09:38 | Emergency (ER) | payer MEDICARE, OTHER ==
[2023-02-09] MEDS ORDERED: Acetaminophen 500 MG TAB ONE (09:58)
[2023-02-09 10:37] LABS: SARS-CoV-2 NAA Rapid Test DETECTED (NotDetected)
== END 2023-02-09 11:02 | disposition home or self-care (01) ==
LOC: ERS 09:38
DX: U07.1 COVID-19 (principal); I10 Essential (primary) hypertension; E78.5 Hyperlipidemia, unspecified; I25.10 Atherosclerotic heart disease of native coronary artery without angina pectoris; E11.9 Type 2 diabetes mellitus without complications; Z79.899 Other long term (current) drug therapy; Z79.84 Long term (current) use of oral hypoglycemic drugs
CPT/HCPCS: 99283

== ENCOUNTER 2023-02-09 21:53 | Observation (INO) | payer MEDICARE, MEDICAID ==
[2023-02-09] MEDS ORDERED: Morphine 4 MG/ML VIAL ONE (22:29)
[2023-02-09] MEDS ORDERED: Ondansetron PF 4 MG/2 ML Vial ONE (22:30)
[2023-02-09 22:59] LABS: #Monocytes 0.3 thou/uL (0.11-0.59); #Neutrophils 3.9 thou/uL (1.40-6.50); %Basophils 0.4 % (0.0-1.0); %Eosinophils 0.2 % (0.0-10.0); %Lymphocytes 8.9 % (21.0-51.0); %Monocytes 5.4 % (0.0-10.0); %Neutrophils 84.7 % (42.0-75.0); Hematocrit 36.6 % (36.0-47.0); Hemoglobin 12.2 g/dL (12.0-16.0); Mean Corpuscular HGB CONC 33.3 g/dL (32.0-36.0); Mean Corpuscular Hemoglobin 29.5 pg (27.0-31.0); Mean Corpuscular Volume 88.4 fl (78.0-98.0); Mean Platelet Volume 12.3 fL (7.4-10.4); Platelet Count 133 10x3/uL (130-400); Red Blood Cell (RBC) Count 4.14 mill/uL (4.20-5.40); White Blood Cell (WBC) Count 4.6 10x3/uL (4.8-10.8)
[2023-02-09 23:24] LABS: ALT (SGPT) 17 U/L (8-55); AST (SGOT) 18 U/L (5-34); Albumin 4.2 g/dL (3.4-4.8); Alkaline Phosphatase 66 U/L (40-110); Anion Gap 14 mmol/L (10-20); BUN (Urea Nitrogen) 22 mg/dL (9.8-20.1); Bilirubin, Total 0.6 mg/dL (0.2-1.2); Calc. Creatinine Clearance 0 mL/min (70-130); Calcium 9.3 mg/dL (7.8-10.44); Carbon Dioxide 20 mmol/L (23-31); Chloride 106 mmol/L (98-107); Estimated GFR 62; Globulin 3.1 g/dL (2.4-3.5); Glucose 170 mg/dL (80-115); Lipase Less than 4 U/L (8-78); Potassium 4.1 mmol/L (3.5-5.1); Protein, Total 7.3 g/dL (5.8-8.1); Sodium 136 mmol/L (136-145)
[2023-02-09 23:25] LABS: Troponin I Less than 0.010 ng/mL (< 0.028)
[2023-02-09] MEDS ORDERED: Ibuprofen 200 MG TAB ONE (23:42)
[2023-02-10] MEDS ORDERED: Glucagon 1 MG/ML KIT IM PRN (02:41)
[2023-02-10] MEDS ORDERED: Dextrose 50% Abboject 50 ML SYRINGE SLOW IVP PRN (02:41)
[2023-02-10] MEDS ORDERED: HumaLOG 300 UNITS/3 ML VIAL SC PRN ×2 (02:41)
[2023-02-10] MEDS ORDERED: Dextrose 5% in Water 1,000 ML IV PRN (02:41)
[2023-02-10] MEDS ORDERED: Acetaminophen 325 MG TAB PO PRN (02:41)
[2023-02-10] MEDS ORDERED: Lactated Ringer's 1,000 ML IV SCH (03:00)
[2023-02-10] MEDS ORDERED: Ibuprofen 200 MG TAB PO PRN (03:08)
[2023-02-10 04:21] LABS: #Monocytes 0.3 thou/uL (0.11-0.59); #Neutrophils 2.9 thou/uL (1.40-6.50); %Basophils 0.2 % (0.0-1.0); %Eosinophils 0.2 % (0.0-10.0); %Lymphocytes 19.6 % (21.0-51.0); %Monocytes 7.8 % (0.0-10.0); %Neutrophils 71.7 % (42.0-75.0); Hematocrit 32.8 % (36.0-47.0); Hemoglobin 10.6 g/dL (12.0-16.0); Mean Corpuscular HGB CONC 32.3 g/dL (32.0-36.0); Mean Corpuscular Hemoglobin 29.1 pg (27.0-31.0); Mean Corpuscular Volume 90.1 fl (78.0-98.0); Mean Platelet Volume 12.8 fL (7.4-10.4); Platelet Count 121 10x3/uL (130-400); RBC Distribution Width 14.1 % (11.5-14.5); Red Blood Cell (RBC) Count 3.64 mill/uL (4.20-5.40); White Blood Cell (WBC) Count 4.1 10x3/uL (4.8-10.8)
[2023-02-10 05:44] LABS: ALT (SGPT) 15 U/L (8-55); AST (SGOT) 19 U/L (5-34); Albumin 3.7 g/dL (3.4-4.8); Alkaline Phosphatase 57 U/L (40-110); Anion Gap 15 mmol/L (10-20); BUN (Urea Nitrogen) 24 mg/dL (9.8-20.1); Bilirubin, Total 0.5 mg/dL (0.2-1.2); CK (CPK) 77 U/L (29-168); Calc. Creatinine Clearance 0 mL/min (70-130); Carbon Dioxide 20 mmol/L (23-31); Chloride 108 mmol/L (98-107); Estimated GFR 59; Globulin 2.7 g/dL (2.4-3.5); Glucose 125 mg/dL (80-115); Potassium 4.2 mmol/L (3.5-5.1); Protein, Total 6.4 g/dL (5.8-8.1); Sodium 139 mmol/L (136-145)
[2023-02-10 05:48] LABS: Calcium 8.6 mg/dL (7.8-10.44)
[2023-02-10] MEDS ORDERED: Ferrous Sulfate 325 MG TAB PO SCH (09:00)
[2023-02-10] MEDS ORDERED: Non-Formulary Item 1 EACH (Sacubitril/Valsartan [Entresto 97 Mg-103 Mg Tablet] 1 EACH Tab PO SCH (09:00)
[2023-02-10] MEDS ORDERED: Benzocaine/Menthol 1 LOZ LOZ PO PRN (09:07)
[2023-02-10] MEDS ORDERED: Benzocaine/Menthol 1 LOZ LOZ PO SCH (09:15)
[2023-02-10] MEDS: Carvedilol 6.25 MG TAB PO SCH ×2 (10:51→16:45)
[2023-02-10] MEDS: Empagliflozin 25 MG TAB PO SCH (10:52)
[2023-02-10] MEDS: Enoxaparin 40 MG (0.4 mL) SYRINGE SC SCH (10:52)
[2023-02-10] MEDS: Gabapentin 300 MG CAP PO SCH ×3 (10:52→20:24)
[2023-02-10] MEDS: Aspirin 81 mg Enteric Coated Tablet PO SCH (10:52)
[2023-02-10] MEDS: Sacubitril 49 MG/Valsartan 51 MG TABLET PO SCH ×2 (10:53→20:24)
[2023-02-10] MEDS: (RENAL) NIRMATRELVIR 150 MG/RITONAVIR 100 MG TABLET PO SCH ×2 (11:14→20:24)
[2023-02-10] MEDS ORDERED: Atorvastatin Calcium 40 MG TAB PO SCH (21:00)
[2023-02-11] MEDS: Sacubitril 49 MG/Valsartan 51 MG TABLET PO SCH (08:46)
[2023-02-11] MEDS: Empagliflozin 25 MG TAB PO SCH (08:47)
[2023-02-11] MEDS: Carvedilol 6.25 MG TAB PO SCH (08:47)
[2023-02-11] MEDS: Enoxaparin 40 MG (0.4 mL) SYRINGE SC SCH (08:47)
[2023-02-11] MEDS: Gabapentin 300 MG CAP PO SCH (08:47)
[2023-02-11] MEDS: Aspirin 81 mg Enteric Coated Tablet PO SCH (08:47)
[2023-02-11] MEDS: (RENAL) NIRMATRELVIR 150 MG/RITONAVIR 100 MG TABLET PO SCH (08:47)
[2023-02-11 09:01] VITALS: BP 135/70; TEMP 97.7
== END 2023-02-11 12:18 | disposition home or self-care (01) ==
LOC: ERS 21:53 → ERHOLD 02-10 02:41 → 2NO 02-10 03:10 → T4-A 02-10 21:54
PROVIDERS: ADMIT Family Medicine; ATTEND Family Medicine
DX: U07.1 COVID-19 (principal); E86.0 Dehydration; R00.0 Tachycardia, unspecified; E11.9 Type 2 diabetes mellitus without complications; E78.5 Hyperlipidemia, unspecified; I11.0 Hypertensive heart disease with heart failure; I50.20 Unspecified systolic (congestive) heart failure; E55.9 Vitamin D deficiency, unspecified; I25.10 Atherosclerotic heart disease of native coronary artery without angina pectoris; Z95.1 Presence of aortocoronary bypass graft; Z79.82 Long term (current) use of aspirin; Z79.899 Other long term (current) drug therapy; Z79.85 Long-term (current) use of injectable non-insulin antidiabetic drugs; Z79.84 Long term (current) use of oral hypoglycemic drugs
CPT/HCPCS: 0240U; 71045; 73502; 73552; 80053 ×2; 82550; 82962 ×2; 83605; 83690; 83880; 84484; 85025 ×2; 87040; 93005; 96372 ×2; 96374; 96375; 97530 ×2; 99283; 99285; G0378 ×3; 36415; 36416; J1650; J2270; J2405; J7120